=== PATIENT | male | born 1965 | race Caucasian/White ===

== ENCOUNTER 2017-02-22 04:35 | Inpatient (IN) | payer MEDICARE, OTHER ==
[2017-02-22] VITALS (10 sets, daily range): BP systolic 119–136; BP diastolic 50–86; PULSE 98–102; RESP 19–20; TEMP 99.4; Ht 162.6 cm; Wt 168.1 kg
[~2017-02-22] VITALS: Ht 162.6 cm; Wt 168.1 kg
[2017-02-22] MEDS ORDERED: ONDANSETRON 4 MG INJ IV ONE (05:08)
[2017-02-22] MEDS ORDERED: ACETAMINOPHEN 500 MG TAB PO STA (05:18)
[2017-02-22 05:23] LABS: ABNORMAL IP MESSAGE 1; BASOPHILS % 0.3 % (0.0-2.0); EOSINOPHILS # 0.2 10^3/ul (0.0-0.5); EOSINOPHILS % 1.3 % (0.0-7.0); HEMATOCRIT 39.5 % (42.0-52.0); LYMPHOCYTES # 0.5 10^3/ul (0.8-2.9); MEAN CORPUSCULAR HEMOGLOBIN 31.3 pg (29.0-33.0); MEAN CORPUSCULAR HGB CONC 32.9 g/dl (32.0-37.0); MEAN PLATELET VOLUME 8.8 fl (7.4-10.4); MONOCYTE # 0.1 10^3/ul (0.3-0.9); MONOCYTES % 0.6 % (0.0-11.0); NEUTROPHILS % 93.4 % (39.0-77.0); PLATELET COUNT 243 10^3/UL (140-415); POSITIVE DIFF @See below; RED BLOOD COUNT 4.16 10^6/ul (4.70-6.10); RED CELL DISTRIBUTION WIDTH 13.2 % (11.5-14.5); WHITE BLOOD COUNT 12.3 10^3/ul (4.8-10.8)
--- NOTE | 2017-02-22 05:31 | RADRPT ---
PROCEDURE: XR Chest. CLINICAL INDICATION: Sepsis TECHNIQUE: Portable single view of the chest COMPARISON: None. FINDINGS: Mild cardiomegaly. Dialysis catheter is seen with tip in the superior vena cava. Reduced lung volu mes. Pulmonary vascular congestion without definite interstitial or alveolar edema. No focal infil trate or pleural effusion. IMPRESSION: Reduced lung volumes. Cardiomegaly and mild pulmonary vascular congestion. RPTAT: HLBE Radha Proctor Physician Date Time Electronically viewed and signed by Radha Proctor Physician on 02/22/2017 05:31 LE/
[2017-02-22] MEDS ORDERED: INSU100I12 SQ (05:34)
[2017-02-22] MEDS ORDERED: PRO20 PO (05:34)
[2017-02-22] MEDS ORDERED: CARV6.2579 PO (05:34)
[2017-02-22] MEDS ORDERED: LANT3I SC (05:34)
[2017-02-22] MEDS ORDERED: ASPI-664 PO (05:34)
[2017-02-22] MEDS ORDERED: SIMV20TA PO (05:34)
[2017-02-22] MEDS ORDERED: CEFEPIME 2GM/50 ML (PMX) 50 ML IVPB STA (05:52)
--- NOTE | 2017-02-22 05:55 | ERA ---
ER Documentation Chief Complaint Date/Time DATE: 02/22/17 TIME: 05:53 Chief Complaint FEVER, VOMITTING, SHAKEY SINCE THIS MORNING HPI 51-year-old male comes in with fever vomiting shakiness and cough since this morning. Cough is mildly productive and causes vomiting. No chills. No other current complaints. Patient with history of diabetes and hypertension. ROS All systems reviewed and are negative except as per history of present illness. Medications Home Meds Reported Medications Carvedilol* (Carvedilol*) 6.25 Mg Tablet, 6.25 MG PO BID, #60 TAB 02/22/17 Simvastatin* (Zocor*) 20 Mg Tablet, 20 MG PO QHS, #30 TAB 02/22/17 Nifedipine* (Procardia*) 20 Mg Cap, 20 MG PO Q6, CAP 02/22/17 Aspirin* (Aspirin* EC) 81 Mg Tablet.dr, 81 MG PO DAILY, TAB 02/22/17 Insulin Lispro (Humalog Kwikpen U-100) 100 Unit/1 Ml Insuln.pen, 10 UNIT SQ AC DINNER 02/22/17 Insulin Glargine* (Lantus*) 100 Unit/Ml Soln, 40 UNIT SC BEFORE BREAKFAST, #1 VIAL 02/22/17 Allergies Allergies: Coded Allergies: No Known Allergy (Unverified , 02/22/17) Physical Exam Vitals Vital Signs Date Time Temp Pulse Resp B/P Pulse Ox O2 Delivery O2 Flow Rate FiO2 02/22/17 04:40 101.3 122 18 154/94 97 Physical Exam Const: [] Head: Atraumatic Eyes: Normal Conjunctiva ENT: Normal External Ears, Nose and Mouth. Neck: Full range of motion..~ No meningismus. Resp: Clear to auscultation bilaterally Cardio: Regular rate and rhythm, no murmurs Abd: Soft, non tender, non distended. Normal bowel sounds Skin: No petechiae or rashes Back: No midline or flank tenderness Ext: No cyanosis, or edema Neur: Awake and alert Psych: Normal Mood and Affect Result Diagram: 02/22/17 0440 Results 24 hrs Laboratory Tests Test 02/22/17 04:40 White Blood Count 12.310^3/ul Red Blood Count 4.1610^6/ul Hemoglobin 13.0g/dl Hematocrit 39.5% Mean Corpuscular Volume 95.0fl Mean Corpuscular Hemoglobin 31.3pg Mean Corpuscular Hemoglobin Concent 32.9g/dl Red Cell Distribution Width 13.2% Platelet Count 69983^3/UL Mean Platelet Volume 8.8fl Neutrophils % 93.4% Lymphocytes % 4.0% Monocytes % 0.6% Eosinophils % 1.3% Basophils % 0.3% Nucleated Red Blood Cells % 0.0/100WBC Neutrophils # (Manual) 1210^3/ul Lymphocytes # 0.510^3/ul Monocytes # 0.110^3/ul Eosinophils # 0.210^3/ul Basophils # 0.010^3/ul Nucleated Red Blood Cells # 0.010^3/ul Current Medications Medications (Trade) Dose Ordered Sig/Angelo Route PRN Reason Start Time Stop Time Status Last Admin Dose Admin Ondansetron HCl (Zofran Inj) 4 mg ONCE ONCE IV 02/22/17 05:08 02/22/17 05:09 DC Acetaminophen (Tylenol Tab) 1,000 mg ONCE STAT PO 02/22/17 05:18 02/22/17 05:19 DC Procedures/MDM EKG: Rate/Rhythm: [Normal Sinus Rhythm] QRS, ST, T-waves: [No changes consistent w/ acute ischemia] Impression: [No evidence of ischemia or arrhythmia] Chest X-ray 1V Interpreted by me: Soft Tissue: No acute abnormalities Bones: No acute abnormalities Mediastinum/Cardiac Silhouette/Lungs: [No acute abnormalities] Patient's infectious symptoms have not stabilized and the patient is at risk of rapid decompensation. The patient will be admitted for careful hydration, antibiotic therapy, and infectious source control. Severe Sepsis Assessment: Infectious Source: Unknown End organ damage indicated by: [Lactate > 2.0 mmol/L Hypotension( SBP < 90 or >40 mmHG drop or MAP < 65) Acute Resp Failure (sat < 92% w/o oxygen) Severe Sepsis Managment: Blood Cultures X 2 before broad spectrum antibiotics initiated within 3 hours of recognition. 30 ml/kg NS bolus held secondary patient's pulmonary vascular congestion and fluid overloaded status Initial Lactate: Pending Repeat Lactate pending Critical Care: Time: 45 minutes Treatments/Evaluations: Emergent fluid management, while maintaining close respiratory support. Immediate broad spectrum antibiotic therapy. Simultaneous assessment for possible sources in order to direct therapy. Consideration for invasive and chemical support to prevent respiratory or cardiac collapse. Accepting Care Team: Current data and ongoing care discussed. Time: 5:45 AM Primary Provider: Hospitalist Consulting: [XOXOXO] Outstanding Data: none Departure Diagnosis: Primary Impression: Fever Qualified Code: R50.9 - Fever, unspecified fever cause Additional Impression: Sepsis Qualified Code: A41.9 - Sepsis, due to unspecified organism Condition: Serious [place] Feb 22, 2017 05:55
[2017-02-22 06:00] LABS: INR 0.97; PROTIME 12.9 Sec (12.2-14.2)
[2017-02-22] MEDS ORDERED: VANCOMYCIN 1 GM (PMX) 250 ML IVPB ONE (06:00)
[2017-02-22 06:01] LABS: PARTIAL THROMBOPLASTIN TIME 43.4 Sec (25.0-35.0)
[2017-02-22 06:06] LABS: POTASSIUM 5.1 mmol/L (3.5-5.1)
[2017-02-22 06:07] LABS: ALBUMIN 4.5 g/dl (3.3-4.9); ALBUMIN/GLOBULIN RATIO 1.12; BILIRUBIN,INDIRECT 0.1 mg/dl (0-1.1); BILIRUBIN,TOTAL 0.1 mg/dl (0.2-1.3); CALCIUM 8.8 mg/dl (8.4-10.2); CREATININE 9.64 mg/dl (0.61-1.24); TOTAL PROTEIN 8.5 g/dl (6.1-8.1)
[2017-02-22 06:18] LABS: TROPONIN-I 0.022 ng/ml (0.00-0.12)
[2017-02-22] MEDS ORDERED: ACETAMINOPHEN 325 MG TAB PO PRN (09:30)
[2017-02-22] MEDS ORDERED: ONDANSETRON 4 MG INJ IV PRN (09:30)
[2017-02-22] MEDS ORDERED: VANCOMYCIN IV PER PHARMACY XX SCH (12:30)
--- NOTE | 2017-02-22 12:32 | HP ---
Date/Time of Note Date/Time of Note DATE: 02/22/17 TIME: 12:23 Assessment/Plan VTE Prophylaxis VTE Prophylaxis Intervention: heparin Lines/Catheters Urinary Cath still in place: No Assessment/Plan Chief Complaint/Hosp Course 51 yo male wiht h/o ESRD on HD, DMII, morbid obesity, hypertension who presents with fevers and rigors while receiving HD Sepsis: - Suspect patient suffered transient bacteremia during HD session - Continue broad spectrum abx (Vanco, cefepime) for now, and await blood culture results ESRD: - HD per renal DMII: - Continue basal/bolus insulin Hypertension: - Will hold antihypertensives while septic PPx: HSQ Dispo to self care following resolution of illness Problems: HPI/ROS Admit Date/Time Admit Date/Time Hx of Present Illness 51 yo male with h/o morbid obesity, DMII, ESRD on HD, HTN who presents with fevers and rigors at HD today Patient in [facility] until HD session. During session began to feel chills, rigors. Temp was elevated. HD stopped after a few minutes and patient brought to ED. Febrile here. Given IV vanco/cefepime. Now says he feels totally back to normal Denies any symptoms of infection prior to this or currently. No cough, no abd pain, diarrhea etc. Has permacath in chest, no symptoms there. PMH/Family/Social Past Medical History Medical History: diabetes, renal disease Past Surgical History AV fistula Past Surgical Hx: other Social History Alcohol Use: none Smoking Status: Never smoker Drug Use: none Exam/Review of Systems Vital Signs Vitals Vital Signs Date Time Temp Pulse Resp B/P Pulse Ox O2 Delivery O2 Flow Rate FiO2 02/22/17 11:50 93 18 124/82 97 Room Air 02/22/17 04:40 101.3 Exam Exam Morbidly obese Resting comfortably in NAD, nontoxic appearing RRR, normal heart sound Permacath site without signs of skin infection Lungs clear Abdomen obese No edema Labs Result Diagram: 02/22/1743902/22/17439 SHAYNA MADDEN MD Feb 22, 2017 12:31
[2017-02-22] MEDS ORDERED: DEXTROSE 50% 50 ML SYRINGE IV PRN ×2 (14:00)
[2017-02-22] MEDS ORDERED: GLUCAGON 1 MG INJ IM PRN (14:00)
[2017-02-22] MEDS ORDERED: GLUCOSE GEL 15 GRAM TUBE BUCCAL PRN (14:00)
[2017-02-22] MEDS ORDERED: GLUCOSE GEL 15 GRAM TUBE PO PRN ×2 (14:00)
[2017-02-22] MEDS: HEPARIN 5,000 UNIT/0.5 ML VIAL SC SCH ×2 (14:56→21:56)
[2017-02-22] MEDS ORDERED: VANCOMYCIN 2 GM in SOD CHLORIDE 0.9% 500 ML IVPB ONE (18:30)
--- NOTE | 2017-02-22 20:44 | CONS ---
DATE OF ADMISSION: 02/22/2017 DATE OF CONSULTATION: 02/22/2017 REASON FOR CONSULTATION: End-stage renal disease. REFERRING PHYSICIAN: Alex Brenner MD HISTORY OF PRESENT ILLNESS: This is a 51-year-old male with a past medical history of end-stage renal disease, on dialysis Monday, Monday, Monday; history of diabetes, hypertension, who presents to [facility] from his dialysis unit. Patient said that once dialysis was initiated, he started having fevers and chills, and was discontinued. As a result, he came to the emergency room. Upon arrival, the patient had a laboratory data drawn, which showed a white count of 12,000. Chest x-ray was performed, which showed reduced lung volumes, cardiomegaly and mild pulmonary vascular congestion. Patient was given IV antibiotics in the emergency room. There was no reports of hemoptysis, hematemesis, hematochezia. PAST MEDICAL HISTORY: As stated above. History of end-stage renal disease. History of diabetes and hypertension. PAST SURGICAL HISTORY: Status post PermCath placement, status post AV fistula placement. ALLERGIES: NO KNOWN DRUG ALLERGIES. FAMILY HISTORY: Noncontributory. SOCIAL HISTORY: Does not drink, smoke, or do drugs. MEDICATION: Reviewed. REVIEW OF SYSTEMS: Fourteen-point review of systems conducted. Pertinent positives in HPI, otherwise negative. PHYSICAL EXAMINATION: VITAL SIGNS: Blood pressure is 124/82, respirations 18, pulse 93, temperature of 100.1. HEENT: Head is normocephalic. NECK: Supple. HEART: Regular rate. LUNGS: Show diminished breath sounds at base. ABDOMEN: Soft, nontender to palpation. No voluntary guarding. EXTREMITIES: Negative for clubbing, cyanosis, no edema. DERMATOLOGIC: No rashes. MUSCULOSKELETAL: No joint effusion. NEUROLOGIC: No change in exam. Patient medications reviewed. LABORATORY: Shows a white count 12.3, hemoglobin 13.0, hematocrit 39.5, platelet count 243. Sodium 135, potassium 5.4, chloride 91, BUN 71, creatinine 9.61, lactic acid 3.3. IMPRESSION AND PLAN: This is a 51-year-old male, presents with followin. End-stage renal disease. Patient is on dialysis Monday, Monday, Monday. Plan for dialysis today for 3 hours, 3K bath, calcium 2.5. 2. Sepsis, rule out line infection. Patient will have blood cultures drawn from his PermCath as well as peripheral cultures. Will continue IV antibiotics. Will monitor closely. If PermCath is infected, consider removing or line exchange. 3. Anemia. Monitor H and H levels. Will give Epogen with hemodialysis. 4. Mineral bone disorder. Monitor calcium and phosphorus levels. 5. Volume overload. Will continue ultrafiltration with hemodialysis. 6. Diabetes. Continue Accu-Cheks and sliding scale. 7. Hypertension. Continue current blood pressure regimen. Thank you, Dr. Miranda, for this interesting consult. It will be a pleasure to follow patient with you throughout the hospital course. Dictated By: Jacobo Gaines DO /valerie/erika /Document#: [id number]
[2017-02-23] MEDS: ACCU-CHEK XX SCH (02:00)
[2017-02-23 02:09] VITALS: BP 104/59; RESP 19
[2017-02-23] MEDS: CEFEPIME 1GM/50 ML (PMX) 50 ML IVPB SCH (06:22)
[2017-02-23 08:15] LABS: BASOPHIL # 0.1 10^3/ul (0.0-0.1); BASOPHILS % 0.4 % (0.0-2.0); EOSINOPHILS # 0.1 10^3/ul (0.0-0.5); EOSINOPHILS % 0.4 % (0.0-7.0); HEMATOCRIT 36.4 % (42.0-52.0); HEMOGLOBIN 11.7 g/dl (14.0-18.0); LYMPHOCYTES # 1.5 10^3/ul (0.8-2.9); LYMPHOCYTES % 12.4 % (15.0-51.0); MEAN CORPUSCULAR HEMOGLOBIN 31.7 pg (29.0-33.0); MEAN CORPUSCULAR HGB CONC 32.1 g/dl (32.0-37.0); MEAN CORPUSCULAR VOLUME 98.6 fl (82.0-101.0); MEAN PLATELET VOLUME 8.9 fl (7.4-10.4); MONOCYTE # 1.4 10^3/ul (0.3-0.9); MONOCYTES % 11.2 % (0.0-11.0); NEUTROPHILS % 75.2 % (39.0-77.0); PLATELET COUNT 134 10^3/UL (140-415); RED BLOOD COUNT 3.69 10^6/ul (4.70-6.10); RED CELL DISTRIBUTION WIDTH 13.6 % (11.5-14.5); WHITE BLOOD COUNT 12.3 10^3/ul (4.8-10.8)
[2017-02-23] MEDS: ASPIRIN (EC) 81 MG TAB PO SCH (08:26)
[2017-02-23] MEDS: HEPARIN 5,000 UNIT/0.5 ML VIAL SC SCH (08:27)
[2017-02-23] MEDS: INSULIN ASPART [NOVOLOG] 3 ML PEN SC SCH ×4 (08:27→17:33)
[2017-02-23] MEDS: INSULIN GLARGINE [LANtus] 3 ML PEN SC SCH (08:30)
[2017-02-23 08:52] VITALS: BP 128/57; RESP 18
[2017-02-23 09:11] LABS: ALBUMIN 3.6 g/dl (3.3-4.9); ALBUMIN/GLOBULIN RATIO 1.05; CALCIUM 8.2 mg/dl (8.4-10.2); CREATININE 9.34 mg/dl (0.61-1.24)
--- NOTE | 2017-02-23 10:26 | PN ---
DATE: 02/23/2017 SUBJECTIVE DATA: The patient is stable. No acute events overnight. The patient had hemodialysis yesterday, tolerated it well with 4 liters removed. OBJECTIVE DATA: VITAL SIGNS: Blood pressure 120/57, respirations 18, pulse 85, temperature 98.1. HEENT: Head is normocephalic. NECK: Supple. HEART: Regular rate. LUNGS: Diminished breath sounds at the base. ABDOMEN: Soft, nontender to palpation. No guarding. EXTREMITIES: Negative for clubbing, cyanosis. No edema. DERMATOLOGIC: No rashes. MUSCULOSKELETAL: No joint effusion. NEUROLOGIC: Unchanged exam. MEDICATIONS: Reviewed. LABORATORY AND DIAGNOSTIC DATA: White count 12.2, hemoglobin 9.7, hematocrit of 36.4, platelet count 134,000. The patient's repeat BNP is pending. The patient's blood cultures 1 out of 2 is growing gram-negative rods. ASSESSMENT AND PLAN: 1. End-stage renal disease. The patient on dialysis Monday, Monday, Monday. Had hemodialysis yesterday, tolerated well. Plan for dialysis tomorrow. 2. Sepsis with gram-negative bacteria etiology is concerning for line infection. Will wait for final cultures and speciation. Consider ID consult. Continue IV antibiotics. Will also draw cultures from PermCath, if repeat cultures remain positive, the patient's PermCath will have to be removed. 3. Anemia. Monitor hemoglobin and hematocrit levels. Will give Epogen with hemodialysis. 4. Mineral bone disorder. Monitor calcium and phosphorus levels. 5. Volume overload. Continue ultrafiltration dialysis. 6. Diabetes. Continue Accu-Cheks and sliding scale. 7. Hypertension. Continue current blood pressure regimen. Dictated By: Jacobo Gaines DO /valerie/margot /Document#: [id number]
--- NOTE | 2017-02-23 11:37 | CONS ---
Date/Time of Note Date/Time of Note DATE: 02/23/17 TIME: 11:35 Consultation Date/Type/Reason Admit Date/Time Date of Consultation: Feb 23, 2017 Type of Consultation: ID Reason for Consultation Antibiotic management Past Medical History Medical History: diabetes, renal disease Past Surgical History Past Surgical Hx: other Social History Alcohol Use: none Smoking Status: Never smoker Drug Use: none Exam/Review of Systems Vital Signs Vitals Vital Signs Date Time Temp Pulse Resp B/P Pulse Ox O2 Delivery O2 Flow Rate FiO2 02/23/17 08:52 98.1 85 18 128/57 94 02/22/17 19:47 Room Air Intake and Output 02/22/17 02/22/17 02/23/17 15:00 23:00 07:00 Intake Total 500 ml 240 ml 1100 ml Output Total 4500 ml Balance -4000 ml 240 ml 1100 ml Results Result Diagram: 02/23/17 0747 02/23/17 0747 Results 24 hrs Laboratory Tests Test 02/22/17 13:40 02/23/17 07:47 02/23/17 08:02 Lactic Acid Level 1.5 White Blood Count 12.3 H Red Blood Count 3.69 L Hemoglobin 11.7 L Hematocrit 36.4 L Mean Corpuscular Volume 98.6 Mean Corpuscular Hemoglobin 31.7 Mean Corpuscular Hemoglobin Concent 32.1 Red Cell Distribution Width 13.6 Platelet Count 134 #L Mean Platelet Volume 8.9 Neutrophils % 75.2 Lymphocytes % 12.4 L Monocytes % 11.2 H Eosinophils % 0.4 Basophils % 0.4 Nucleated Red Blood Cells % 0.0 Neutrophils # (Manual) 9 H Lymphocytes # 1.5 Monocytes # 1.4 H Eosinophils # 0.1 Basophils # 0.1 Nucleated Red Blood Cells # 0.0 Sodium Level 134 L Potassium Level 5.0 Chloride Level 95 L Carbon Dioxide Level 26 Anion Gap 18 H Blood Urea Nitrogen 63 H Creatinine 9.34 H Glucose Level 128 # Calcium Level 8.2 L Total Bilirubin 0.0 L Direct Bilirubin 0.00 Indirect Bilirubin 0.0 Aspartate Amino Transf (AST/SGOT) 19 Alanine Aminotransferase (ALT/SGPT) 24 Alkaline Phosphatase 56 Total Protein 7.0 # Albumin 3.6 Globulin 3.40 H Albumin/Globulin Ratio 1.05 Bedside Glucose 117 Medications Medications Current Medications Aspirin 81 mg 81 mg DAILY PO Last administered on 02/23/17 08:26; Admin Dose 81 MG; Start 02/23/17 at 09:00 Cefepime HCl (Maxipime 1gm/50 ml (Pmx)) 50 ml @ 100 mls/hr Q24H IVPB Last administered on 02/23/17 06:22; Admin Dose 100 MLS/HR; Start 02/23/17 at 06:00 Heparin Sodium (Porcine) (Heparin (5000 Units/0.5 ml)) 5,000 unit BID SC Last administered on 02/23/17 08:27; Admin Dose 5,000 UNIT; Start 02/22/17 at 13:00 Diagnostic Test (Pha) (Accu-Chek) 1 ea 02 XX ; Start 02/23/17 at 02:00 Insulin Glargine (Lantus) 34 unit DAILY@08 SC Last administered on 02/23/17 08 :30; Admin Dose 34 UNIT; Start 02/23/17 at 08:00 Miscellaneous Information 1 ea NOTE XX ; Start 02/22/17 at 14:00 Glucose (Glutose) 15 gm Q15M PRN PO DECREASED GLUCOSE; Start 02/22/17 at 14:00 Glucose (Glutose) 22.5 gm Q15M PRN PO DECREASED GLUCOSE; Start 02/22/17 at 14: 00 Dextrose (D50w Syringe) 25 ml Q15M PRN IV DECREASED GLUCOSE; Start 02/22/17 at 14:00 Dextrose (D50w Syringe) 50 ml Q15M PRN IV DECREASED GLUCOSE; Start 02/22/17 at 14:00 Glucagon (Glucagen) 1 mg Q15M PRN IM DECREASED GLUCOSE; Start 02/22/17 at 14:00 Glucose (Glutose) 15 gm Q15M PRN BUCCAL DECREASED GLUCOSE; Start 02/22/17 at 14 :00 Miscellaneous Information (*Rx Drug Level Order Reminder*) VANCOMYCIN RANDOM ON 02/01... ONCE ONCE XX ; Start 02/24/17 at 05:00; Stop 02/24/17 at 05:01 TIFFANIE CAMACHO MD Feb 23, 2017 11:37
[2017-02-23] MEDS: Insulin NOVOLOG SS MILD Algorithm (SS with meals and bedtime) SC SCH ×3 (12:09→20:34)
--- NOTE | 2017-02-23 12:18 | CONS ---
DATE OF ADMISSION: 02/22/2017 DATE OF CONSULTATION: 02/23/2017 REASON FOR CONSULTATION: Antibiotic management. HISTORY OF PRESENT ILLNESS: Kevin Brand is a 51-year-old male, with end-stage renal disease, on hemodialysis, who comes in now with sepsis and is being seen for antibiotic management. Past problems include: 1. History of morbid obesity. 2. Adult-onset diabetes mellitus. 3. End-stage renal disease, on hemodialysis. 4. Hypertension. The patient presents with fever and rigors when he was at hemodialysis on the . During the session, he began to feel chills and rigors, he developed an elevated temperature, dialysis was stopped and he was brought to the emergency room. He was given vancomycin and cefepime. He denies any symptoms of infection prior to this or in the emergency room. He has a PermCath in the chest with no tenderness around the PermCath. In the emergency room, his white count was 12.3, H and H of 13 and 39.5, platelet count 243,000. BUN and creatinine were 71/9.64, glucose was 180. PAST MEDICAL HISTORY: Operations as outlined. He had an AV fistula. Past surgical history is noncontributory except for a dialysis catheter. FAMILY HISTORY: Noncontributory. SOCIAL HISTORY: He does not smoke, drink, or abuse drugs. ALLERGIES: NONE TO PENICILLIN, SULFA, OR FOODS. MEDICATION: Per chart. REVIEW OF SYSTEMS: As per HPI. PHYSICAL EXAMINATION: GENERAL: Patient is a morbidly obese male, who is awake, responsive, in no acute distress. VITAL SIGNS: Stable. T-max is 101.3. SKIN: Without generalized rash. HEENT: Within normal limits. NECK: Supple. Lymph nodes nonpalpable. CHEST: Decreased breath sounds at the bases. HEART: Without murmur or gallop. ABDOMEN: Soft, nontender, without organosplenomegaly or masses. EXTREMITIES: Without cyanosis, clubbing, or edema. RECTAL AND GENITAL: Exams deferred. NEUROLOGIC: No focal neurological abnormalities. IMPRESSION AND PLAN: The patient presents now with what appears to be sepsis. Actually, his blood cultures from are now growing 1/2 gram-negative rods. His white count is 12.3. I do not believe he is putting out any urine. His chest x-ray shows no evidence of infiltrate but does show mild pulmonary vascular congestion and a dialysis catheter with the tip in the superior vena cava. Patient is currently on vancomycin and cefepime. We will await the results of his cultures. I will dictate my findings to the hospitalist and also to Dr. Gaines. Cultures from the PermCath have also been redrawn by Dr. Gaines and if the cultures remain positive, the PermCath will be removed. Dictated By: Lyle Allison MD JD/valerie/manoj /Document#: [id number]
--- NOTE | 2017-02-23 12:25 | PN ---
Date/Time of Note Date/Time of Note DATE: 02/23/17 TIME: 12:21 Assessment/Plan VTE Prophylaxis VTE Prophylaxis Intervention: SCD's Lines/Catheters IV Catheter Type (from Nrs): PERMA CATH Urinary Cath still in place: No Assessment/Plan Chief Complaint/Hosp Course 51 yo male wiht h/o ESRD on HD, DMII, morbid obesity, hypertension who presents with fevers and rigors while receiving HD, found to have GNR bactermia Sepsis from GNR bacteremia: - Continue broad spectrum abx (Vanco, cefepime) for now, and await blood culture results - ID consult - Permacath culture - Consider remove HD line ESRD: - HD per renal DMII: - Continue basal/bolus insulin Hypertension: - Will hold antihypertensives while septic PPx: HSQ Dispo to self care following resolution of illness Problems: Subjective 24 Hr Interval Summary Free Text/Dictation Patient rigored during initial HD session again yesterday so was held until yesterday PM which went successfully Today feels well, asking if can be discharged. Informed him he has bactermiea and very important he stay here. He is in agreement. He is worried his AV fisulta is infected Exam/Review of Systems Vital Signs Vitals Vital Signs Date Time Temp Pulse Resp B/P Pulse Ox O2 Delivery O2 Flow Rate FiO2 02/23/17 08:52 98.1 85 18 128/57 94 02/22/17 19:47 Room Air Intake and Output 02/22/17 02/22/17 02/23/17 15:00 23:00 07:00 Intake Total 500 ml 240 ml 1100 ml Output Total 4500 ml Balance -4000 ml 240 ml 1100 ml Exam Morbidly obese Nontoxic Comfortable Permacath in R chest looks clean, no surrounding infection AV fistula of LUE Results Result Diagram: 02/23/17 0747 02/23/17 0747 Results 24 hrs Laboratory Tests Test 02/22/17 13:40 02/23/17 07:47 02/23/17 08:02 02/23/17 11:37 Lactic Acid Level 1.5 White Blood Count 12.3 H Red Blood Count 3.69 L Hemoglobin 11.7 L Hematocrit 36.4 L Mean Corpuscular Volume 98.6 Mean Corpuscular Hemoglobin 31.7 Mean Corpuscular Hemoglobin Concent 32.1 Red Cell Distribution Width 13.6 Platelet Count 134 #L Mean Platelet Volume 8.9 Neutrophils % 75.2 Lymphocytes % 12.4 L Monocytes % 11.2 H Eosinophils % 0.4 Basophils % 0.4 Nucleated Red Blood Cells % 0.0 Neutrophils # (Manual) 9 H Lymphocytes # 1.5 Monocytes # 1.4 H Eosinophils # 0.1 Basophils # 0.1 Nucleated Red Blood Cells # 0.0 Sodium Level 134 L Potassium Level 5.0 Chloride Level 95 L Carbon Dioxide Level 26 Anion Gap 18 H Blood Urea Nitrogen 63 H Creatinine 9.34 H Glucose Level 128 # Calcium Level 8.2 L Total Bilirubin 0.0 L Direct Bilirubin 0.00 Indirect Bilirubin 0.0 Aspartate Amino Transf (AST/SGOT) 19 Alanine Aminotransferase (ALT/SGPT) 24 Alkaline Phosphatase 56 Total Protein 7.0 # Albumin 3.6 Globulin 3.40 H Albumin/Globulin Ratio 1.05 Bedside Glucose 117 105 Medications Medications Current Medications Aspirin 81 mg 81 mg DAILY PO Last administered on 02/23/17 08:26; Admin Dose 81 MG; Start 02/23/17 at 09:00 Cefepime HCl (Maxipime 1gm/50 ml (Pmx)) 50 ml @ 100 mls/hr Q24H IVPB Last administered on 02/23/17 06:22; Admin Dose 100 MLS/HR; Start 02/23/17 at 06:00 Heparin Sodium (Porcine) (Heparin (5000 Units/0.5 ml)) 5,000 unit BID SC Last administered on 02/23/17 08:27; Admin Dose 5,000 UNIT; Start 02/22/17 at 13:00 Diagnostic Test (Pha) (Accu-Chek) 1 ea 02 XX ; Start 02/23/17 at 02:00 Insulin Glargine (Lantus) 34 unit DAILY@08 SC Last administered on 02/23/17 08 :30; Admin Dose 34 UNIT; Start 02/23/17 at 08:00 Miscellaneous Information 1 ea NOTE XX ; Start 02/22/17 at 14:00 Glucose (Glutose) 15 gm Q15M PRN PO DECREASED GLUCOSE; Start 02/22/17 at 14:00 Glucose (Glutose) 22.5 gm Q15M PRN PO DECREASED GLUCOSE; Start 02/22/17 at 14: 00 Dextrose (D50w Syringe) 25 ml Q15M PRN IV DECREASED GLUCOSE; Start 02/22/17 at 14:00 Dextrose (D50w Syringe) 50 ml Q15M PRN IV DECREASED GLUCOSE; Start 02/22/17 at 14:00 Glucagon (Glucagen) 1 mg Q15M PRN IM DECREASED GLUCOSE; Start 02/22/17 at 14:00 Glucose (Glutose) 15 gm Q15M PRN BUCCAL DECREASED GLUCOSE; Start 02/22/17 at 14 :00 Miscellaneous Information (*Rx Drug Level Order Reminder*) VANCOMYCIN RANDOM ON 02/01... ONCE ONCE XX ; Start 02/24/17 at 05:00; Stop 02/24/17 at 05:01 SHAYNA MADDEN MD Feb 23, 2017 12:25
[2017-02-23 15:40] VITALS: BP 127/59; RESP 20
[2017-02-23] MEDS ORDERED: INSULIN ASPART [NOVOLOG] 3 ML PEN SC SCH (17:35)
[2017-02-23 19:40] VITALS: BP 145/66; RESP 16
[2017-02-24] VITALS (10 sets, daily range): BP systolic 109–144; BP diastolic 56–85; PULSE 84–89; RESP 18–20
[2017-02-24] MEDS: ACCU-CHEK XX SCH (02:00)
[2017-02-24] MEDS: CEFEPIME 1GM/50 ML (PMX) 50 ML IVPB SCH (05:58)
[2017-02-24 06:09] LABS: ABNORMAL IP MESSAGE 1; BASOPHIL # 0.1 10^3/ul (0.0-0.1); BASOPHILS % 0.7 % (0.0-2.0); EOSINOPHILS # 0.2 10^3/ul (0.0-0.5); EOSINOPHILS % 2.7 % (0.0-7.0); HEMATOCRIT 36.1 % (42.0-52.0); HEMOGLOBIN 11.9 g/dl (14.0-18.0); LYMPHOCYTES # 1.9 10^3/ul (0.8-2.9); MEAN CORPUSCULAR HEMOGLOBIN 31.4 pg (29.0-33.0); MEAN CORPUSCULAR VOLUME 95.3 fl (82.0-101.0); MEAN PLATELET VOLUME 9.2 fl (7.4-10.4); MONOCYTE # 1.6 10^3/ul (0.3-0.9); MONOCYTES % 17.3 % (0.0-11.0); NUCLEATED RED BLOOD CELLS% 0.2 /100WBC (0.0-0.0); PLATELET COUNT 147 10^3/UL (140-415); POSITIVE DIFF @See below; RED BLOOD COUNT 3.79 10^6/ul (4.70-6.10); RED CELL DISTRIBUTION WIDTH 13.2 % (11.5-14.5)
[2017-02-24 06:55] LABS: ALBUMIN 3.4 g/dl (3.3-4.9); CREATININE 10.7 mg/dl (0.61-1.24); POTASSIUM 5.4 mmol/L (3.5-5.1)
[2017-02-24 06:56] LABS: ALBUMIN/GLOBULIN RATIO 0.94
[2017-02-24] MEDS: Insulin NOVOLOG SS MILD Algorithm (SS with meals and bedtime) SC SCH ×4 (07:30→20:18)
[2017-02-24] MEDS: INSULIN ASPART [NOVOLOG] 3 ML PEN SC SCH ×3 (07:35→18:16)
[2017-02-24] MEDS: INSULIN GLARGINE [LANtus] 3 ML PEN SC SCH (08:12)
[2017-02-24] MEDS: ASPIRIN (EC) 81 MG TAB PO SCH (08:12)
--- NOTE | 2017-02-24 11:12 | PN ---
DATE: 02/24/2017 SUBJECTIVE DATA: The patient is stable. No events overnight. No fevers, chills, nausea, vomiting. The patient is scheduled for dialysis today. OBJECTIVE DATA: VITAL SIGNS: Blood pressure 117/56, respirations 18, pulse 80, temperature 97.5. HEENT: Head is normocephalic. NECK: Supple. HEART: Regular rate. LUNGS: Show diminished breath sounds at the base. ABDOMEN: Soft, nontender to palpation. No rebound or guarding. EXTREMITIES: Negative for clubbing, cyanosis. No edema. DERMATOLOGIC: No rashes. MUSCULOSKELETAL: No joint effusion. NEUROLOGIC: Unchanged exam. MEDICATIONS: Reviewed. LABORATORY AND DIAGNOSTIC DATA: Shows sodium 136, potassium 5.4, BUN 78, creatinine 10.70. White count is 9.0, hemoglobin 11.9, crit 36.1, platelet count is 147. ASSESSMENT AND PLAN: 1. End-stage renal disease. The patient on dialysis Monday, Monday, Monday. The patient is scheduled for dialysis today. We will plan for dialysis for 3 hours, 3K bath, calcium 2.5. 2. Sepsis, gram-negative bacteremia. Etiology is concerning for line infection. Patient's blood cultures 1/2 show gram- negative rods. Repeat blood cultures from PermCath are pending today. If cultures remain positive, we will likely need to discontinue PermCath. Additionally, if patient has symptoms of systemic inflammatory response syndrome and sepsis with dialysis, will need to discontinue PermCath. If patient is clinically improving and repeat cultures are negative, we may be able to spare PermCath. We will discuss again with Infectious Disease today. 3. Anemia. Monitor H and H levels. Give Epogen as needed. 4. Mineral bone disorder. Continue to monitor calcium and phosphorus levels. 5. Volume overload. Continue ultrafiltration dialysis. 6. Diabetes. Continue Accu-Cheks, insulin sliding scale. 7. Hypertension. Continue current blood pressure regimen. Dictated By: Jacobo Gaines DO /valerie/manoj /Document#: [id number]
--- NOTE | 2017-02-24 17:43 | PN ---
Date/Time of Note Date/Time of Note DATE: 02/24/17 TIME: 17:42 Assessment/Plan VTE Prophylaxis VTE Prophylaxis Intervention: heparin Lines/Catheters IV C[facility]ter Type [facility]from [facility] perma cath Urinary Cath still in place: No Assessment/Plan Chief Complaint/Hosp Course 51 yo male wiht h/o ESRD on HD, DMII, morbid obesity, hypertension who presents with fevers and rigors while receiving HD, found to have GNR bactermia Sepsis from GNR bacteremia: - Continue broad spectrum abx (Vanco, cefepime) for now, and await blood culture results - ID consulted - Permacath culture pending. - Will likely remove HD line ESRD: - HD per renal DMII: - Continue basal/bolus insulin Hypertension: - Will hold antihypertensives while septic PPx: HSQ Dispo to self care following resolution of illness Problems: Subjective 24 Hr Interval Summary Free Text/Dictation Feels well, no complaints HD planned for today No more fevers or rigors Exam/Review of Systems Vital Signs Vitals Vital Signs Date Time Temp Pulse Resp B/P Pulse Ox O2 Delivery O2 Flow Rate FiO2 02/24/17 17:00 85 20 02/24/17 14:26 97.5 109/75 93 02/22/17 19:47 Room Air Intake and Output 02/23/17 02/23/17 02/24/17 15:00 23:00 07:00 Intake Total 1200 ml 700 ml Balance 1200 ml 700 ml Results Result Diagram: 02/24/17 0522 02/24/17 0522 Results 24 hrs Laboratory Tests Test 02/23/17 20:32 02/24/17 05:22 02/24/17 07:45 02/24/17 11:43 Bedside Glucose 120 90 101 White Blood Count 9.0 # Red Blood Count 3.79 L Hemoglobin 11.9 L Hematocrit 36.1 L Mean Corpuscular Volume 95.3 Mean Corpuscular Hemoglobin 31.4 Mean Corpuscular Hemoglobin Concent 33.0 Red Cell Distribution Width 13.2 Platelet Count 147 Mean Platelet Volume 9.2 Neutrophils % 58.0 Lymphocytes % 21.0 Monocytes % 17.3 H Eosinophils % 2.7 Basophils % 0.7 Nucleated Red Blood Cells % 0.2 H Neutrophils # (Manual) 5.2 Lymphocytes # 1.9 Monocytes # 1.6 H Eosinophils # 0.2 Basophils # 0.1 Nucleated Red Blood Cells # 0.0 Sodium Level 136 Potassium Level 5.4 H Chloride Level 94 L Carbon Dioxide Level 20 L Anion Gap 27 H Blood Urea Nitrogen 78 H Creatinine 10.70 H Glucose Level 89 Calcium Level 8.0 L Total Bilirubin 0.0 L Direct Bilirubin 0.00 Indirect Bilirubin 0.0 Aspartate Amino Transf (AST/SGOT) 25 Alanine Aminotransferase (ALT/SGPT) 22 Alkaline Phosphatase 46 Total Protein 7.0 Albumin 3.4 Globulin 3.60 H Albumin/Globulin Ratio 0.94 Random Vancomycin Level 23.8 Test 02/24/17 17:20 Bedside Glucose 130 Medications Medications Current Medications Aspirin 81 mg 81 mg DAILY PO Last administered on 02/24/17 08:12; Admin Dose 81 MG; Start 02/23/17 at 09:00 Cefepime HCl (Maxipime 1gm/50 ml (Pmx)) 50 ml @ 100 mls/hr Q24H IVPB Last administered on 02/24/17 05:58; Admin Dose 100 MLS/HR; Start 02/23/17 at 06:00 Diagnostic Test (Pha) (Accu-Chek) 1 ea 02 XX ; Start 02/23/17 at 02:00 Insulin Glargine (Lantus) 34 unit DAILY@08 SC Last administered on 02/24/17 08 :12; Admin Dose 34 UNIT; Start 02/23/17 at 08:00 Miscellaneous Information 1 ea NOTE XX ; Start 02/22/17 at 14:00 Glucose (Glutose) 15 gm Q15M PRN PO DECREASED GLUCOSE; Start 02/22/17 at 14:00 Glucose (Glutose) 22.5 gm Q15M PRN PO DECREASED GLUCOSE; Start 02/22/17 at 14: 00 Dextrose (D50w Syringe) 25 ml Q15M PRN IV DECREASED GLUCOSE; Start 02/22/17 at 14:00 Dextrose (D50w Syringe) 50 ml Q15M PRN IV DECREASED GLUCOSE; Start 02/22/17 at 14:00 Glucagon (Glucagen) 1 mg Q15M PRN IM DECREASED GLUCOSE; Start 02/22/17 at 14:00 Glucose (Glutose) 15 gm Q15M PRN BUCCAL DECREASED GLUCOSE; Start 02/22/17 at 14 :00 SHAYNA MADDEN MD Feb 24, 2017 17:43
[2017-02-25 02:00] VITALS: BP 127/60; RESP 20
[2017-02-25] MEDS: ACCU-CHEK XX SCH (02:00)
--- NOTE | 2017-02-25 04:25 | PN ---
DATE: 02/24/2017 SUBJECTIVE DATA: No acute changes overnight. The patient is alert, feels good, sitting comfortably in bed. Family at bedside. He is afebrile. LABORATORY AND DIAGNOSTIC DATA: WBC 9, H and H 11.9 and 36.1, and platelets 147. INDWELLINGS: Right chest PermCath. MICROBIOLOGY: Blood culture growing gram-negative rods. ANTIMICROBIALS: The patient is on IV cefepime and vancomycin. PHYSICAL EXAMINATION: GENERAL: Morbidly obese, middle-aged man, who is awake, in no distress. HEENT: Head atraumatic, normocephalic. Sclerae anicteric. Buccal mucosa pink. NECK: Obese. CHEST: Rise symmetrical. Breath sounds diminished at bases. HEART: S1, S2. ABDOMEN: Soft, bowel sounds present. EXTREMITIES: Without cyanosis. ASSESSMENT: 1. Wound gram-negative luis enrique bacteremia likely secondary to infected PermCath. 2. End-stage renal disease, hemodialysis dependent. 3. Morbid obesity. 4. Diabetes. 5. Hypertension. PLAN: 1. The patient remains stable. 2. Blood cultures are pending. 3. Chest x-ray was negative, therefore we will stop vancomycin and keep him on cefepime. 4. We will repeat blood culture with hemodialysis today. 5. Follow on final cultures. 6. Consider PermCath change with line holiday between new catheter placement. Above was discussed with Dr. Gaines. Dictated By: Evgeny Wharton NP /valerie/liberty /Document#: [id number] OVIDIO
[2017-02-25] MEDS: CEFEPIME 1GM/50 ML (PMX) 50 ML IVPB SCH (06:00)
[2017-02-25] MEDS: Insulin NOVOLOG SS MILD Algorithm (SS with meals and bedtime) SC SCH ×4 (07:30→20:49)
[2017-02-25] MEDS: INSULIN ASPART [NOVOLOG] 3 ML PEN SC SCH ×4 (07:35→17:35)
[2017-02-25] MEDS: INSULIN GLARGINE [LANtus] 3 ML PEN SC SCH (07:56)
[2017-02-25] MEDS: ASPIRIN (EC) 81 MG TAB PO SCH (08:01)
[2017-02-25 10:12] LABS: BASOPHILS % 0.5 % (0.0-2.0); EOSINOPHILS # 0.2 10^3/ul (0.0-0.5); HEMATOCRIT 39.3 % (42.0-52.0); HEMOGLOBIN 12.4 g/dl (14.0-18.0); LYMPHOCYTES # 2.3 10^3/ul (0.8-2.9); LYMPHOCYTES % 26.3 % (15.0-51.0); MEAN CORPUSCULAR HEMOGLOBIN 30.4 pg (29.0-33.0); MEAN CORPUSCULAR HGB CONC 31.6 g/dl (32.0-37.0); MEAN CORPUSCULAR VOLUME 96.3 fl (82.0-101.0); MEAN PLATELET VOLUME 9.3 fl (7.4-10.4); MONOCYTE # 1.1 10^3/ul (0.3-0.9); MONOCYTES % 13.2 % (0.0-11.0); NEUTROPHILS % 57.6 % (39.0-77.0); PLATELET COUNT 141 10^3/UL (140-415); RED BLOOD COUNT 4.08 10^6/ul (4.70-6.10); RED CELL DISTRIBUTION WIDTH 13.5 % (11.5-14.5); WHITE BLOOD COUNT 8.6 10^3/ul (4.8-10.8)
[2017-02-25 11:02] LABS: ALBUMIN 3.9 g/dl (3.3-4.9); CALCIUM 8.4 mg/dl (8.4-10.2); CREATININE 9.75 mg/dl (0.61-1.24); POTASSIUM 4.9 mmol/L (3.5-5.1); TOTAL PROTEIN 7.8 g/dl (6.1-8.1)
[2017-02-25] MEDS ORDERED: LIDOCAINE 1% (MPF) 30 ML INJ INJ PRN (12:30)
--- NOTE | 2017-02-25 13:14 | PN ---
DATE: 02/25/2017 SUBJECTIVE DATA: Patient is stable. No events overnight. Patient had hemodialysis yesterday, tolerated well. OBJECTIVE DATA: VITAL SIGNS: Blood pressure is 120/67, respirations 20, pulse 85, and temp 98.6. HEENT: Head is normocephalic. NECK: Supple. HEART: Regular rate. LUNGS: Diminished breath sounds at the base. ABDOMEN: Soft, nontender to palpation. No guarding. EXTREMITIES: Negative for clubbing, cyanosis. No edema. DERMATOLOGIC: Clean. No rashes. MUSCULOSKELETAL: No joint effusion. NEUROLOGIC: Unchanged exam. MEDICATIONS: Reviewed. LABORATORY AND DIAGNOSTIC DATA: Currently pending. ASSESSMENT AND PLAN: 1. End-stage renal disease. The patient hemodialysis yesterday, tolerated well. Plan for next dialysis on Monday. 2. Sepsis, gram-negative bacteremia. Etiology secondary to line infection. The patient's repeat cultures been negative. However, after communicating with Infectious Disease we will have the patient's Permacath removed with a line holiday before new catheter was placed. Continue antibiotic regimen. 3. Anemia. Monitor hemoglobin and hematocrit levels. We will give Epogen as needed. 4. Mineral bone disorder. Monitor calcium and phosphorus levels. 5. Volume overload. Continue ultrafiltration dialysis. 6. Diabetes. Continue Accu-Cheks and sliding scale. 7. Hypertension. Continue current blood pressure regimen. Dictated By: Jacobo Gaines DO /valerie/liberty /Document#: [id number]
--- NOTE | 2017-02-25 13:26 | OPR ---
Date/Time of Note Date/Time of Note DATE: 02/25/17 TIME: 13:24 Operative Report Procedure Date: Feb 25, 2017 Preoperative Diagnosis Infected permacath Postoperative Diagnosis Infected permacath Operation Performed Removal of infected permacath Surgeon: JALEEL LUA MD Anesthesia Type: other Estimated Blood Loss: none Transfusion Required: no Specimen: none Grafts/Implants: none Complications: no Pt Condition Post Procedure: stable Indications Infected permacath Operative\Procedure Findings Dictated Procedure Description Patient was placed in the supine position prepped and draped in usual sterile fashion response comp occasions alternative therapies explained to the patient consent obtained 1% lidocaine was used throughout the operation for local anesthesia the cuff of the catheter was grabbed using a hemostat catheter and the cuff were removed in entirety appropriate dressings applied patient tolerated paste procedure well JALEEL LUA MD Feb 25, 2017 13:26
[2017-02-25 14:00] VITALS: BP 168/65; RESP 21
--- NOTE | 2017-02-25 15:51 | PN ---
Date/Time of Note Date/Time of Note DATE: 02/25/17 TIME: 15:49 Assessment/Plan VTE Prophylaxis VTE Prophylaxis Intervention: heparin Lines/Catheters IV Catheter Type (from Nrs): permacath Urinary Cath still in place: No Assessment/Plan Chief Complaint/Hosp Course 51 yo male wiht h/o ESRD on HD, DMII, morbid obesity, hypertension who presents with fevers and rigors while receiving HD, found to have GNR bactermia Sepsis from K pneumo bacteremia - Continue cefepime for now, narrow per ID consult ESRD: - HD per renal - Will need new access to be placed next week DMII: - Continue basal/bolus insulin Hypertension: - Will hold antihypertensives while septic PPx: HSQ Dispo to self care following resolution of illness Problems: Subjective 24 Hr Interval Summary Free Text/Dictation Permcath removed, looked infected per report Patient feels well, no complaints Sensitve Klebs on BC speciation Exam/Review of Systems Vital Signs Vitals Vital Signs Date Time Temp Pulse Resp B/P Pulse Ox O2 Delivery O2 Flow Rate FiO2 02/25/17 02:00 98.3 20 127/60 93 Room Air 02/24/17 17:00 85 Intake and Output 02/24/17 02/24/17 02/25/17 15:00 23:00 07:00 Intake Total 1640 ml 600 ml Output Total 4500 ml Balance -2860 ml 600 ml Results Result Diagram: 02/25/1791802/25/17918 Results 24 hrs Laboratory Tests Test 02/24/17 17:20 02/24/17 20:15 02/24/17 23:29 02/25/17 00:50 Bedside Glucose 130 169 85 142 Test 02/25/17 07:55 02/25/17 09:19 02/25/17 11:53 Bedside Glucose 107 128 White Blood Count 8.6 Red Blood Count 4.08 L Hemoglobin 12.4 L Hematocrit 39.3 L Mean Corpuscular Volume 96.3 Mean Corpuscular Hemoglobin 30.4 Mean Corpuscular Hemoglobin Concent 31.6 L Red Cell Distribution Width 13.5 Platelet Count 141 Mean Platelet Volume 9.3 Neutrophils % 57.6 Lymphocytes % 26.3 Monocytes % 13.2 H Eosinophils % 2.0 Basophils % 0.5 Nucleated Red Blood Cells % 0.0 Neutrophils # (Manual) 4.9 Lymphocytes # 2.3 Monocytes # 1.1 H Eosinophils # 0.2 Basophils # 0.0 Nucleated Red Blood Cells # 0.0 Sodium Level 142 Potassium Level 4.9 Chloride Level 91 L Carbon Dioxide Level 28 Anion Gap 28 H Blood Urea Nitrogen 63 H Creatinine 9.75 H Glucose Level 223 #H Calcium Level 8.4 Total Bilirubin 0.0 L Direct Bilirubin 0.00 Indirect Bilirubin 0.0 Aspartate Amino Transf (AST/SGOT) 22 Alanine Aminotransferase (ALT/SGPT) 23 Alkaline Phosphatase 60 Total Protein 7.8 Albumin 3.9 Globulin 3.90 H Albumin/Globulin Ratio 1.00 Medications Medications Current Medications Aspirin 81 mg 81 mg DAILY PO Last administered on 02/25/17 08:01; Admin Dose 81 MG; Start 02/23/17 at 09:00 Cefepime HCl (Maxipime 1gm/50 ml (Pmx)) 50 ml @ 100 mls/hr Q24H IVPB Last administered on 02/25/17 06:00; Admin Dose 100 MLS/HR; Start 02/23/17 at 06:00 Diagnostic Test (Pha) (Accu-Chek) 1 ea 02 XX ; Start 02/23/17 at 02:00 Insulin Glargine (Lantus) 34 unit DAILY@08 SC Last administered on 02/25/17 07 :56; Admin Dose 34 UNIT; Start 02/23/17 at 08:00 Miscellaneous Information 1 ea NOTE XX ; Start 02/22/17 at 14:00 Glucose (Glutose) 15 gm Q15M PRN PO DECREASED GLUCOSE; Start 02/22/17 at 14:00 Glucose (Glutose) 22.5 gm Q15M PRN PO DECREASED GLUCOSE; Start 02/22/17 at 14: 00 Dextrose (D50w Syringe) 25 ml Q15M PRN IV DECREASED GLUCOSE; Start 02/22/17 at 14:00 Dextrose (D50w Syringe) 50 ml Q15M PRN IV DECREASED GLUCOSE; Start 02/22/17 at 14:00 Glucagon (Glucagen) 1 mg Q15M PRN IM DECREASED GLUCOSE; Start 02/22/17 at 14:00 Glucose (Glutose) 15 gm Q15M PRN BUCCAL DECREASED GLUCOSE; Start 02/22/17 at 14 :00 Lidocaine (Xylocaine 1% (Mpf)) 30 ml ONCE PRN INJ ANESTHESIA Last administered on 02/25/17t 13:36; Admin Dose 30 ML; Start 02/25/17 at 12:30 SHAYNA MADDEN MD Feb 25, 2017 15:51
--- NOTE | 2017-02-25 18:19 | CONS ---
Date/Time of Note Date/Time of Note DATE: 02/25/17 TIME: 18:12 Assessment/Plan Assessment/Plan Chief Complaint/Hosp Course ID PROGRESS NOTE CURRENT ABX: Vanco IV + Cefepime 24H INTERVAL SUMMARY * Awake, alert, responsive,feels well, R-CXT PermCath DC'd, no new issues, no fevers, no complaints * MICROBIOLOGY: BCx (+) GNR KP => Repeat BCx (-) * BLOOD CULTURE Final BCULT GRAM BOTTLE 1 Gram negative rods . seen on gram stain of the broth Organism 1 K.PNEUMONIAE SSP PNEUMONIA K PNE SPP M.I.C. RX --------- --- CEFAZOLIN I CEFOTAXIME S CIPROFLOXACIN <=0.25 S GENTAMICIN <=1 S LEVOFLOXACIN <=0.12 S TOBRAMYCIN <=1 S TRIMETHOPRIM/SULFAMETHOXAZOLE <=20 S EXAM GEN: Super morbid obese M, A/A/O, VSS, NAD, no fevers, good historian HEENT: Unremarkable NECK: Supple CVS: RRR, S1 and S2 CHEST: Equal chest rise bilaterally without dyspnea ABD: Soft, NT, + BS EXT: No c/c/e SKIN: (+)Generalized diffuse rash of uremia ID ASSESSMENT 51 yo M admit with: 1. GNR sepsis w/(+)GNR KP bacteremia on admission due to infected PermCath * PermCath DC'd * Repeat BCx (-) * Fevers on admission = resolved * Leukocytosis on admission = resolved 2. End-stage renal disease, hemodialysis dependent. * LUEXT fistula present - not ripe 3. Morbid obesity. 4. Diabetes. 5. Hypertension. 6. Rash -- consistent w/rash of uremia (-) MRSA Nares CURRENT ABX: Vanco IV + Cefepime ID RECOMMENDATIONS 1. Continue current ABX 2. Line holiday with temporary Gurdeep Problems: Consultation Date/Type/Reason Admit Date/Time Feb 22, 2017 at 05:53 Initial Consult Date 02/23/17 Type of Consultation: ID Exam/Review of Systems Vital Signs Vitals Vital Signs Date Time Temp Pulse Resp B/P Pulse Ox O2 Delivery O2 Flow Rate FiO2 02/25/17 14:00 98.4 89 21 168/65 97 02/25/17 02:00 Room Air Intake and Output 02/24/17 02/24/17 02/25/17 14:59 22:59 06:59 Intake Total 1640 ml 600 ml Output Total 4500 ml Balance -2860 ml 600 ml Results Result Diagram: 02/25/1791802/25/17918 Results 24 hrs Laboratory Tests Test 02/24/17 20:15 02/24/17 23:29 02/25/17 00:50 02/25/17 07:55 Bedside Glucose 169 85 142 107 Test 02/25/17 09:19 02/25/17 11:53 02/25/17 17:33 White Blood Count 8.6 Red Blood Count 4.08 L Hemoglobin 12.4 L Hematocrit 39.3 L Mean Corpuscular Volume 96.3 Mean Corpuscular Hemoglobin 30.4 Mean Corpuscular Hemoglobin Concent 31.6 L Red Cell Distribution Width 13.5 Platelet Count 141 Mean Platelet Volume 9.3 Neutrophils % 57.6 Lymphocytes % 26.3 Monocytes % 13.2 H Eosinophils % 2.0 Basophils % 0.5 Nucleated Red Blood Cells % 0.0 Neutrophils # (Manual) 4.9 Lymphocytes # 2.3 Monocytes # 1.1 H Eosinophils # 0.2 Basophils # 0.0 Nucleated Red Blood Cells # 0.0 Sodium Level 142 Potassium Level 4.9 Chloride Level 91 L Carbon Dioxide Level 28 Anion Gap 28 H Blood Urea Nitrogen 63 H Creatinine 9.75 H Glucose Level 223 #H Calcium Level 8.4 Total Bilirubin 0.0 L Direct Bilirubin 0.00 Indirect Bilirubin 0.0 Aspartate Amino Transf (AST/SGOT) 22 Alanine Aminotransferase (ALT/SGPT) 23 Alkaline Phosphatase 60 Total Protein 7.8 Albumin 3.9 Globulin 3.90 H Albumin/Globulin Ratio 1.00 Bedside Glucose 128 123 Medications Medications Current Medications Aspirin 81 mg 81 mg DAILY PO Last administered on 02/25/17 08:01; Admin Dose 81 MG; Start 02/23/17 at 09:00 Cefepime HCl (Maxipime 1gm/50 ml (Pmx)) 50 ml @ 100 mls/hr Q24H IVPB Last administered on 02/25/17 06:00; Admin Dose 100 MLS/HR; Start 02/23/17 at 06:00 Diagnostic Test (Pha) (Accu-Chek) 1 ea 02 XX ; Start 02/23/17 at 02:00 Insulin Glargine (Lantus) 34 unit DAILY@08 SC Last administered on 02/25/17 07 :56; Admin Dose 34 UNIT; Start 02/23/17 at 08:00 Miscellaneous Information 1 ea NOTE XX ; Start 02/22/17 at 14:00 Glucose (Glutose) 15 gm Q15M PRN PO DECREASED GLUCOSE; Start 02/22/17 at 14:00 Glucose (Glutose) 22.5 gm Q15M PRN PO DECREASED GLUCOSE; Start 02/22/17 at 14: 00 Dextrose (D50w Syringe) 25 ml Q15M PRN IV DECREASED GLUCOSE; Start 02/22/17 at 14:00 Dextrose (D50w Syringe) 50 ml Q15M PRN IV DECREASED GLUCOSE; Start 02/22/17 at 14:00 Glucagon (Glucagen) 1 mg Q15M PRN IM DECREASED GLUCOSE; Start 02/22/17 at 14:00 Glucose (Glutose) 15 gm Q15M PRN BUCCAL DECREASED GLUCOSE; Start 02/22/17 at 14 :00 Lidocaine (Xylocaine 1% (Mpf)) 30 ml ONCE PRN INJ ANESTHESIA Last administered on 02/25/17 13:36; Admin Dose 30 ML; Start 02/25/17 at 12:30 TIA RIVERA NP Feb 25, 2017 18:19
[2017-02-25 20:00] VITALS: BP 125/64; RESP 20
[2017-02-26 02:00] VITALS: BP 125/58; RESP 20
[2017-02-26] MEDS: ACCU-CHEK XX SCH (02:00)
[2017-02-26] MEDS: CEFEPIME 1GM/50 ML (PMX) 50 ML IVPB SCH (05:34)
[2017-02-26] MEDS: Insulin NOVOLOG SS MILD Algorithm (SS with meals and bedtime) SC SCH ×4 (07:30→20:24)
[2017-02-26] MEDS: INSULIN ASPART [NOVOLOG] 3 ML PEN SC SCH ×4 (07:35→17:30)
[2017-02-26 08:00] VITALS: BP 154/72; RESP 21
[2017-02-26] MEDS: INSULIN GLARGINE [LANtus] 3 ML PEN SC SCH (08:21)
[2017-02-26] MEDS: ASPIRIN (EC) 81 MG TAB PO SCH (08:21)
[2017-02-26 08:47] LABS: BASOPHILS % 0.5 % (0.0-2.0); EOSINOPHILS # 0.2 10^3/ul (0.0-0.5); EOSINOPHILS % 2.2 % (0.0-7.0); HEMATOCRIT 37.4 % (42.0-52.0); HEMOGLOBIN 12.1 g/dl (14.0-18.0); LYMPHOCYTES # 2.6 10^3/ul (0.8-2.9); LYMPHOCYTES % 32.8 % (15.0-51.0); MEAN CORPUSCULAR HEMOGLOBIN 31.2 pg (29.0-33.0); MEAN CORPUSCULAR HGB CONC 32.4 g/dl (32.0-37.0); MEAN CORPUSCULAR VOLUME 96.4 fl (82.0-101.0); MEAN PLATELET VOLUME 9.2 fl (7.4-10.4); MONOCYTE # 0.9 10^3/ul (0.3-0.9); MONOCYTES % 11.5 % (0.0-11.0); NEUTROPHILS % 52.5 % (39.0-77.0); PLATELET COUNT 147 10^3/UL (140-415); RED BLOOD COUNT 3.88 10^6/ul (4.70-6.10); RED CELL DISTRIBUTION WIDTH 13.2 % (11.5-14.5); WHITE BLOOD COUNT 7.8 10^3/ul (4.8-10.8)
[2017-02-26 09:33] LABS: ALBUMIN 3.5 g/dl (3.3-4.9); ALBUMIN/GLOBULIN RATIO 0.97; CREATININE 10.63 mg/dl (0.61-1.24); POTASSIUM 5.2 mmol/L (3.5-5.1); TOTAL PROTEIN 7.1 g/dl (6.1-8.1)
--- NOTE | 2017-02-26 13:43 | PN ---
DATE: 02/26/2017 SUBJECTIVE DATA: The patient yesterday had his PermCath removed without any complications. No other events noted. OBJECTIVE DATA: VITAL SIGNS: Blood pressure 125/58, respirations 20, pulse 78, temperature 98.1. HEENT: Head is normocephalic. NECK: Supple. HEART: Regular rate. LUNGS: Diminished breath sounds at the base. ABDOMEN: Soft, nontender to palpation. No rebound or guarding. EXTREMITIES: Negative for clubbing, cyanosis. No edema. DERMATOLOGIC: Clean. No rashes. MUSCULOSKELETAL: No joint effusion. NEUROLOGIC: No change in exam. MEDICATIONS: Reviewed. LABORATORY AND DIAGNOSTIC DATA: Currently pending. ASSESSMENT AND PLAN: 1. End-stage renal disease. The patient's last hemodialysis was Monday. Anticipate next hemodialysis tomorrow. 2. Sepsis with gram-negative bacteremia. Etiology secondary to line infection. The patient's PermCath was removed. Continue current antibiotic regimen. 3. Access. The patient's PermCath was removed. Will likely need a Gurdeep catheter in the next 24 hours to initiate hemodialysis. Will follow up with vascular surgeon Dr. Miranda. 4. Anemia. Monitor hemoglobin and hematocrit levels. Continue Epogen. 5. Mineral bone disorder. Monitor calcium and phosphorus levels. 6. Volume overload. Continue ultrafiltration dialysis. 7. Diabetes. Continue Accu-Cheks and insulin sliding scale. 8. Hypertension. Continue current blood pressure regimen. Dictated By: Jacobo Gaines DO /valerie/deniz /Document#: [id number]
[2017-02-26 14:00] VITALS: BP 152/73; RESP 20
--- NOTE | 2017-02-26 14:45 | CONS ---
Date/Time of Note Date/Time of Note DATE: 02/26/17 TIME: 14:34 Assessment/Plan Assessment/Plan Chief Complaint/Hosp Course Assessment/Plan Chief Complaint/Hosp Course ID PROGRESS NOTE CURRENT ABX: Vanco IV + Cefepime 24H INTERVAL SUMMARY * Awake. Alert. Denies Pain. R-CXT PermCath DC'd. * MICROBIOLOGY: BCx (+) GNR KP => Repeat BCx (-) * BLOOD CULTURE Final BCULT GRAM BOTTLE 1 Gram negative rods . seen on gram stain of the broth Organism 1 K.PNEUMONIAE SSP PNEUMONIA K PNE SPP M.I.C. RX --------- --- CEFAZOLIN I CEFOTAXIME S CIPROFLOXACIN <=0.25 S GENTAMICIN <=1 S LEVOFLOXACIN <=0.12 S TOBRAMYCIN <=1 S TRIMETHOPRIM/SULFAMETHOXAZOLE <=20 S EXAM GEN: Super morbid obese M, A/A/O, VSS, NAD, no fevers, good historian HEENT: Unremarkable NECK: Supple CVS: RRR, S1 and S2 CHEST: Equal chest rise bilaterally without dyspnea ABD: Soft, NT, + BS EXT: No c/c/e SKIN: (+)Generalized diffuse rash of uremia ID ASSESSMENT 51 yo M admit with: 1. GNR sepsis w/(+)GNR KP bacteremia on admission due to infected PermCath * PermCath DC'd * Repeat BCx (-) * Fevers on admission = resolved * Leukocytosis on admission = resolved 2. End-stage renal disease, hemodialysis dependent. * LUEXT fistula present - not ripe 3. Morbid obesity. 4. Diabetes. 5. Hypertension. 6. Rash -- consistent w/rash of uremia (-) MRSA Nares CURRENT ABX: Vanco IV + Cefepime ID RECOMMENDATIONS 1. Continue current ABX 2. Line holiday with temporary Gurdeep 3. Avoid Nephrotoxic Drugs. Monitor Labs. Problems: Consultation Date/Type/Reason Admit Date/Time Feb 22, 2017 at 05:53 Initial Consult Date 02/23/17 Type of Consultation: ID Exam/Review of Systems Vital Signs Vitals Vital Signs Date Time Temp Pulse Resp B/P Pulse Ox O2 Delivery O2 Flow Rate FiO2 02/26/17 08:00 97.7 80 21 154/72 94 02/25/17 02:00 Room Air Intake and Output 02/25/17 02/25/17 02/26/17 15:00 23:00 07:00 Intake Total 640 ml 480 ml Balance 640 ml 480 ml Results Result Diagram: 02/26/17 0753 02/26/17 0753 Results 24 hrs Laboratory Tests Test 02/25/17 17:33 02/25/17 20:42 02/26/17 02:31 02/26/17 07:53 Bedside Glucose 123 213 96 White Blood Count 7.8 Red Blood Count 3.88 L Hemoglobin 12.1 L Hematocrit 37.4 L Mean Corpuscular Volume 96.4 Mean Corpuscular Hemoglobin 31.2 Mean Corpuscular Hemoglobin Concent 32.4 Red Cell Distribution Width 13.2 Platelet Count 147 Mean Platelet Volume 9.2 Neutrophils % 52.5 Lymphocytes % 32.8 Monocytes % 11.5 H Eosinophils % 2.2 Basophils % 0.5 Nucleated Red Blood Cells % 0.0 Neutrophils # (Manual) 4.1 Lymphocytes # 2.6 Monocytes # 0.9 Eosinophils # 0.2 Basophils # 0.0 Nucleated Red Blood Cells # 0.0 Sodium Level 139 Potassium Level 5.2 H Chloride Level 94 L Carbon Dioxide Level 23 Anion Gap 27 H Blood Urea Nitrogen 78 H Creatinine 10.63 H Glucose Level 100 # Calcium Level 8.0 L Total Bilirubin 0.0 L Direct Bilirubin 0.00 Indirect Bilirubin 0.0 Aspartate Amino Transf (AST/SGOT) 26 Alanine Aminotransferase (ALT/SGPT) 23 Alkaline Phosphatase 54 Total Protein 7.1 Albumin 3.5 Globulin 3.60 H Albumin/Globulin Ratio 0.97 Test 02/26/17 08:12 02/26/17 12:11 Bedside Glucose 108 145 Medications Medications Current Medications Aspirin 81 mg 81 mg DAILY PO Last administered on 02/26/17 08:21; Admin Dose 81 MG; Start 02/23/17 at 09:00 Cefepime HCl (Maxipime 1gm/50 ml (Pmx)) 50 ml @ 100 mls/hr Q24H IVPB Last administered on 02/26/17 05:34; Admin Dose 100 MLS/HR; Start 02/23/17 at 06:00 Diagnostic Test (Pha) (Accu-Chek) 1 ea 02 XX ; Start 02/23/17 at 02:00 Insulin Glargine (Lantus) 34 unit DAILY@08 SC Last administered on 02/26/17 08 :21; Admin Dose 34 UNIT; Start 02/23/17 at 08:00 Miscellaneous Information 1 ea NOTE XX ; Start 02/22/17 at 14:00 Glucose (Glutose) 15 gm Q15M PRN PO DECREASED GLUCOSE; Start 02/22/17 at 14:00 Glucose (Glutose) 22.5 gm Q15M PRN PO DECREASED GLUCOSE; Start 02/22/17 at 14: 00 Dextrose (D50w Syringe) 25 ml Q15M PRN IV DECREASED GLUCOSE; Start 02/22/17 at 14:00 Dextrose (D50w Syringe) 50 ml Q15M PRN IV DECREASED GLUCOSE; Start 02/22/17 at 14:00 Glucagon (Glucagen) 1 mg Q15M PRN IM DECREASED GLUCOSE; Start 02/22/17 at 14:00 Glucose (Glutose) 15 gm Q15M PRN BUCCAL DECREASED GLUCOSE; Start 02/22/17 at 14 :00 Lidocaine (Xylocaine 1% (Mpf)) 30 ml ONCE PRN INJ ANESTHESIA Last administered on 02/25/17 13:36; Admin Dose 30 ML; Start 02/25/17 at 12:30 ASHKAN ACEVEDO NP Feb 26, 2017 14:45
--- NOTE | 2017-02-26 17:55 | PN ---
Date/Time of Note Date/Time of Note DATE: 02/26/17 TIME: 17:54 Assessment/Plan VTE Prophylaxis VTE Prophylaxis Intervention: LMWH Lines/Catheters IV Catheter Type (from Nrs): Saline Lock Urinary Cath still in place: No Assessment/Plan Chief Complaint/Hosp Course 51 yo male wiht h/o ESRD on HD, DMII, morbid obesity, hypertension who presents with fevers and rigors while receiving HD, found to have GNR bactermia Sepsis from K pneumo bacteremia 2/2 HD line infection: - Continue cefepime for now, narrow per ID consult - Infected permacath has been removed - Monitor BC ESRD: - HD per renal, however now has no HD access - Will need new access to be placed next week for HD DMII: - Continue basal/bolus insulin Hypertension: - Will hold antihypertensives while septic PPx: HSQ Dispo to self care following resolution of illness Problems: Subjective 24 Hr Interval Summary Free Text/Dictation Doing well no complaints Exam/Review of Systems Vital Signs Vitals Vital Signs Date Time Temp Pulse Resp B/P Pulse Ox O2 Delivery O2 Flow Rate FiO2 02/26/17 14:00 98.0 83 20 152/73 96 02/25/17 02:00 Room Air Intake and Output 02/25/17 02/25/17 02/26/17 15:00 23:00 07:00 Intake Total 640 ml 480 ml Balance 640 ml 480 ml Results Result Diagram: 02/26/17 0753 02/26/17 0753 Results 24 hrs Laboratory Tests Test 02/25/17 20:42 02/26/17 02:31 02/26/17 07:53 02/26/17 08:12 Bedside Glucose 213 96 108 White Blood Count 7.8 Red Blood Count 3.88 L Hemoglobin 12.1 L Hematocrit 37.4 L Mean Corpuscular Volume 96.4 Mean Corpuscular Hemoglobin 31.2 Mean Corpuscular Hemoglobin Concent 32.4 Red Cell Distribution Width 13.2 Platelet Count 147 Mean Platelet Volume 9.2 Neutrophils % 52.5 Lymphocytes % 32.8 Monocytes % 11.5 H Eosinophils % 2.2 Basophils % 0.5 Nucleated Red Blood Cells % 0.0 Neutrophils # (Manual) 4.1 Lymphocytes # 2.6 Monocytes # 0.9 Eosinophils # 0.2 Basophils # 0.0 Nucleated Red Blood Cells # 0.0 Sodium Level 139 Potassium Level 5.2 H Chloride Level 94 L Carbon Dioxide Level 23 Anion Gap 27 H Blood Urea Nitrogen 78 H Creatinine 10.63 H Glucose Level 100 # Calcium Level 8.0 L Total Bilirubin 0.0 L Direct Bilirubin 0.00 Indirect Bilirubin 0.0 Aspartate Amino Transf (AST/SGOT) 26 Alanine Aminotransferase (ALT/SGPT) 23 Alkaline Phosphatase 54 Total Protein 7.1 Albumin 3.5 Globulin 3.60 H Albumin/Globulin Ratio 0.97 Test 02/26/17 12:11 02/26/17 17:14 Bedside Glucose 145 169 Medications Medications Current Medications Aspirin 81 mg 81 mg DAILY PO Last administered on 02/26/17 08:21; Admin Dose 81 MG; Start 02/23/17 at 09:00 Cefepime HCl (Maxipime 1gm/50 ml (Pmx)) 50 ml @ 100 mls/hr Q24H IVPB Last administered on 02/26/17 05:34; Admin Dose 100 MLS/HR; Start 02/23/17 at 06:00 Diagnostic Test (Pha) (Accu-Chek) 1 ea 02 XX ; Start 02/23/17 at 02:00 Insulin Glargine (Lantus) 34 unit DAILY@08 SC Last administered on 02/26/17 08 :21; Admin Dose 34 UNIT; Start 02/23/17 at 08:00 Miscellaneous Information 1 ea NOTE XX ; Start 02/22/17 at 14:00 Glucose (Glutose) 15 gm Q15M PRN PO DECREASED GLUCOSE; Start 02/22/17 at 14:00 Glucose (Glutose) 22.5 gm Q15M PRN PO DECREASED GLUCOSE; Start 02/22/17 at 14: 00 Dextrose (D50w Syringe) 25 ml Q15M PRN IV DECREASED GLUCOSE; Start 02/22/17 at 14:00 Dextrose (D50w Syringe) 50 ml Q15M PRN IV DECREASED GLUCOSE; Start 02/22/17 at 14:00 Glucagon (Glucagen) 1 mg Q15M PRN IM DECREASED GLUCOSE; Start 02/22/17 at 14:00 Glucose (Glutose) 15 gm Q15M PRN BUCCAL DECREASED GLUCOSE; Start 02/22/17 at 14 :00 Lidocaine (Xylocaine 1% (Mpf)) 30 ml ONCE PRN INJ ANESTHESIA Last administered on 02/25/17 13:36; Admin Dose 30 ML; Start 02/25/17 at 12:30 SHAYNA MADDEN MD Feb 26, 2017 17:55
[2017-02-26 20:37] VITALS: BP 140/65; RESP 16
[2017-02-26] MEDS ORDERED: BISACODYL (EC) 5 MG TAB PO PRN (21:00)
[2017-02-26] MEDS: DOCUSATE SODIUM 100 MG CAP PO SCH (21:05)
[2017-02-26] MEDS ORDERED: ACETAMINOPHEN 325 MG TAB ONE (23:41)
[2017-02-27] MEDS: ACCU-CHEK XX SCH ×2 (01:24→20:51)
[2017-02-27] MEDS: ACETAMINOPHEN 325 MG TAB PO PRN (02:34)
[2017-02-27 02:40] VITALS: BP 139/57; RESP 18
[2017-02-27] MEDS: CEFEPIME 1GM/50 ML (PMX) 50 ML IVPB SCH (05:17)
[2017-02-27 06:14] LABS: CALCIUM 7.8 mg/dl (8.4-10.2); CREATININE 11.76 mg/dl (0.61-1.24); MAGNESIUM 2.5 mg/dl (1.7-2.5); PHOSPHORUS 10.9 mg/dl (2.5-4.9); POTASSIUM 5.4 mmol/L (3.5-5.1)
[2017-02-27] MEDS: Insulin NOVOLOG SS MILD Algorithm (SS with meals and bedtime) SC SCH ×4 (07:30→20:51)
[2017-02-27] MEDS: INSULIN ASPART [NOVOLOG] 3 ML PEN SC SCH ×3 (07:35→17:46)
[2017-02-27 07:56] VITALS: BP 131/63; RESP 19
[2017-02-27] MEDS: DOCUSATE SODIUM 100 MG CAP PO SCH ×2 (08:00→20:51)
[2017-02-27] MEDS: ASPIRIN (EC) 81 MG TAB PO SCH (08:00)
[2017-02-27] MEDS: INSULIN GLARGINE [LANtus] 3 ML PEN SC SCH (08:03)
[2017-02-27 14:13] VITALS: BP 145/65; RESP 19
--- NOTE | 2017-02-27 15:54 | PN ---
Date/Time of Note Date/Time of Note DATE: 02/27/17 TIME: 15:53 Assessment/Plan VTE Prophylaxis VTE Prophylaxis Intervention: ambulation Lines/Catheters IV Catheter Type (from Nrs): Saline Lock Urinary Cath still in place: No Assessment/Plan Chief Complaint/Hosp Course 51 yo male wiht h/o ESRD on HD, DMII, morbid obesity, hypertension who presents with fevers and rigors while receiving HD, found to have GNR bactermia Sepsis from K pneumo bacteremia 2/2 HD line infection: - Continue cefepime for now, narrow per ID consult - Infected permacath has been removed - Monitor BC ESRD: - HD per renal, however now has no HD access - Will need new access to be placed next week for HD DMII: - Continue basal/bolus insulin Hypertension: - Will hold antihypertensives while septic PPx: Ambulation Problems: Subjective 24 Hr Interval Summary Constitutional: no complaints Exam/Review of Systems Vital Signs Vitals Vital Signs Date Time Temp Pulse Resp B/P Pulse Ox O2 Delivery O2 Flow Rate FiO2 02/27/17 14:13 98.0 80 19 145/65 95 02/25/17 02:00 Room Air Intake and Output 02/26/17 02/26/17 02/27/17 15:00 23:00 07:00 Intake Total 360 ml 650 ml Balance 360 ml 650 ml Exam Constitutional: alert, oriented Respiratory: clear to auscultation Cardiovascular: regular rate and rhythm Gastrointestinal: soft, No distended Musculoskeletal: nl extremities to inspection Results Result Diagram: 02/26/17 0753 02/27/17 0445 Results 24 hrs Laboratory Tests Test 02/26/17 17:14 02/26/17 20:23 02/26/17 23:32 02/27/17 04:45 Bedside Glucose 169 150 113 Sodium Level 139 Potassium Level 5.4 H Chloride Level 93 L Carbon Dioxide Level 26 Anion Gap 25 H Blood Urea Nitrogen 87 H Creatinine 11.76 H Glucose Level 111 Calcium Level 7.8 L Phosphorus Level 10.9 H Magnesium Level 2.5 Test 02/27/17 07:58 02/27/17 11:58 Bedside Glucose 104 205 Medications Medications Current Medications Aspirin 81 mg 81 mg DAILY PO Last administered on 02/27/17t 08:00; Admin Dose 81 MG; Start 02/23/17 at 09:00 Cefepime HCl (Maxipime 1gm/50 ml (Pmx)) 50 ml @ 100 mls/hr Q24H IVPB Last administered on 02/27/17 05:17; Admin Dose 100 MLS/HR; Start 02/23/17 at 06:00 Diagnostic Test (Pha) (Accu-Chek) 1 ea 02 XX ; Start 02/23/17 at 02:00 Insulin Glargine (Lantus) 34 unit DAILY@08 SC Last administered on 02/27/17 08 :03; Admin Dose 34 UNIT; Start 02/23/17 at 08:00 Miscellaneous Information 1 ea NOTE XX ; Start 02/22/17 at 14:00 Glucose (Glutose) 15 gm Q15M PRN PO DECREASED GLUCOSE; Start 02/22/17 at 14:00 Glucose (Glutose) 22.5 gm Q15M PRN PO DECREASED GLUCOSE; Start 02/22/17 at 14: 00 Dextrose (D50w Syringe) 25 ml Q15M PRN IV DECREASED GLUCOSE; Start 02/22/17 at 14:00 Dextrose (D50w Syringe) 50 ml Q15M PRN IV DECREASED GLUCOSE; Start 02/22/17 at 14:00 Glucagon (Glucagen) 1 mg Q15M PRN IM DECREASED GLUCOSE; Start 02/22/17 at 14:00 Glucose (Glutose) 15 gm Q15M PRN BUCCAL DECREASED GLUCOSE; Start 02/22/17 at 14 :00 Lidocaine (Xylocaine 1% (Mpf)) 30 ml ONCE PRN INJ ANESTHESIA Last administered on 02/25/17 13:36; Admin Dose 30 ML; Start 02/25/17 at 12:30 Docusate Sodium (Colace) 100 mg BID PO Last administered on 02/27/17 08:00; Admin Dose 100 MG; Start 02/26/17 at 21:00 Bisacodyl (Dulcolax) 10 mg DAILY PRN PO CONSTIPATION Last administered on 21:05; Admin Dose 10 MG; Start 02/26/17 at 21:00 Acetaminophen (Tylenol Tab) 650 mg Q6H PRN PO PAIN AND OR ELEVATED TEMP Last administered on 02/27/17 02:34; Admin Dose 650 MG; Start 02/27/17 at 00:00 PRINCESS DUCKWORTH Feb 27, 2017 15:54
--- NOTE | 2017-02-27 17:35 | PN ---
DATE: 02/27/2017 SUBJECTIVE DATA: Patient is stable. No events overnight. No fevers, chills, nausea, or vomiting. OBJECTIVE DATA: VITAL SIGNS: Blood pressure is 131/63, temperature 97.6, and pulse 19. HEENT: Head is normocephalic. NECK: Supple. HEART: Regular rate. LUNGS: Diminished breath sounds at the base. ABDOMEN: Soft, nontender to palpation. No rebound or guarding. EXTREMITIES: Negative for clubbing or cyanosis. No edema. DERMATOLOGIC: Clean. No rashes. MUSCULOSKELETAL: No joint effusion. NEUROLOGIC: No change in exam. MEDICATIONS: Reviewed. LABORATORY AND DIAGNOSTIC DATA: Shows a white count 7.8, hemoglobin 12.1, hematocrit 37.4, and platelet count is 147. Sodium 139, potassium 5.4, BUN 87, creatinine 11.76, and phosphorus 7.9. ASSESSMENT AND PLAN: 1. End-stage renal disease. The patient's last hemodialysis was Monday and anticipate dialysis today once Gurdeep catheter placed. 2. Sepsis with gram-negative bacteremia and line infection. The patient's PermCath was removed. Continue current antibiotic regimen. 3. Access. The patient requires Permacath placement. We will have Gurdeep catheter placed. Plan for dialysis have Gurdeep catheter placed. 4. Anemia. Monitor hemoglobin and hematocrit levels. 5. Mineral bone disorder. Monitor calcium and phosphorus levels. 6. Volume overload. Continue ultrafiltration dialysis. 7. Diabetes. Continue Accu-Cheks and sliding scale. 8. Hypertension. Continue current blood pressure regimen. Dictated By: Jacobo Gaines DO /valerie/liberty /Document#: [id number]
[2017-02-27] MEDS ORDERED: NA POLYST SULFON 15 GM/60 ML BTL PO ONE (18:00)
[2017-02-27] MEDS ORDERED: GENTAMICIN IV PER PHARMACY XX SCH (18:00)
[2017-02-27] MEDS ORDERED: GENTAMICIN IVPB SCH (18:30)
[2017-02-27] MEDS ORDERED: SOD CHLORIDE 0.9% IVPB SCH (18:30)
[2017-02-27 20:22] VITALS: BP 158/65; RESP 16
[2017-02-28] VITALS (7 sets, daily range): BP systolic 129–187; BP diastolic 58–75; PULSE 76–78; RESP 16–20
--- NOTE | 2017-02-28 02:33 | PN ---
DATE: 02/27/2017 INFECTIOUS DISEASE PROGRESS NOTE SUBJECTIVE DATA: No acute changes. The patient is alert, feels good, looks comfortable, denies pain. No fevers. ANTIMICROBIALS: Cefepime. OBJECTIVE DATA: VITAL SIGNS: Temperature 98, pulse 80, respirations 19, blood pressure 145/65, saturation 95 percent. GENERAL: This is a morbidly obese, middle-aged man who is alert in no distress. HEENT: Head atraumatic, normocephalic. Sclerae are anicteric. Buccal mucosa pink. NECK: Obese. RESPIRATORY: Chest rise symmetrical. Breath sounds diminished at the bases. HEART: S1, S2. ABDOMEN: Soft, bowel sounds present. EXTREMITIES: Without cyanosis. SKIN: Multiple areas of follicular ingrown hair. LABORATORY AND DIAGNOSTIC DATA: No labs this morning. MICROBIOLOGY: Blood culture on 02/22/2017 grew Klebsiella pneumonia. Repeat blood cultures negative. ASSESSMENT: 1. Resolving sepsis. 2. Klebsiella pneumoniae bacteremia. Status post PermCath removed. 3. Morbid obesity. 4. End-stage renal disease, hemodialysis dependent. 5. Diabetes. 6. Hypertension. PLAN: The patient remains stable. Repeat blood cultures negative. We are going to change antibiotics to gentamicin. Await new Gurdeep catheter placement. Dictated By: Evgeny Wharton NP /valerie/cade /Document#: [id number]
[2017-02-28 07:01] LABS: CALCIUM 7.7 mg/dl (8.4-10.2); CREATININE 12.48 mg/dl (0.61-1.24); POTASSIUM 5.1 mmol/L (3.5-5.1)
[2017-02-28] MEDS: Insulin NOVOLOG SS MILD Algorithm (SS with meals and bedtime) SC SCH ×4 (07:30→20:43)
[2017-02-28] MEDS: INSULIN ASPART [NOVOLOG] 3 ML PEN SC SCH ×3 (08:16→17:33)
[2017-02-28] MEDS: ASPIRIN (EC) 81 MG TAB PO SCH (08:17)
[2017-02-28] MEDS: INSULIN GLARGINE [LANtus] 3 ML PEN SC SCH (08:17)
[2017-02-28] MEDS: DOCUSATE SODIUM 100 MG CAP PO SCH ×2 (08:17→20:44)
--- NOTE | 2017-02-28 15:55 | PN ---
Date/Time of Note Date/Time of Note DATE: 02/28/17 TIME: 15:54 Assessment/Plan VTE Prophylaxis VTE Prophylaxis Intervention: ambulation Lines/Catheters IV Catheter Type (from Nrs): Saline Lock Urinary Cath still in place: No Assessment/Plan Chief Complaint/Hosp Course 51 yo male wiht h/o ESRD on HD, DMII, morbid obesity, hypertension who presents with fevers and rigors while receiving HD, found to have GNR bactermia Sepsis from K pneumo bacteremia 2/2 HD line infection: - Continue cefepime for now, narrow per ID consult - Infected permacath has been removed - Monitor BC ESRD: - HD per renal, however now has no HD access - Will need new access to be placed next week for HD DMII: - Continue basal/bolus insulin Hypertension: - Will hold antihypertensives while septic PPx: Ambulation Problems: Subjective 24 Hr Interval Summary Constitutional: no complaints Exam/Review of Systems Vital Signs Vitals Vital Signs Date Time Temp Pulse Resp B/P Pulse Ox O2 Delivery O2 Flow Rate FiO2 02/28/17 14:00 98.2 79 18 154/63 94 02/25/17 02:00 Room Air Intake and Output 02/27/17 02/27/17 02/28/17 15:00 23:00 07:00 Intake Total 1025 ml 600 ml Balance 1025 ml 600 ml Exam Constitutional: alert Respiratory: clear to auscultation Cardiovascular: regular rate and rhythm Gastrointestinal: soft, No distended Musculoskeletal: nl extremities to inspection Results Result Diagram: 02/26/17 0753 02/28/17 0514 Results 24 hrs Laboratory Tests Test 02/27/17 17:40 02/27/17 20:50 02/28/17 05:14 02/28/17 08:09 Bedside Glucose 87 131 97 Sodium Level 139 Potassium Level 5.1 Chloride Level 94 L Carbon Dioxide Level 22 Anion Gap 28 H Blood Urea Nitrogen 100 H Creatinine 12.48 H Glucose Level 91 Calcium Level 7.7 L Test 02/28/17 11:50 Bedside Glucose 147 Medications Medications Current Medications Aspirin (Halfprin) 81 mg DAILY PO Last administered on 02/28/17t 08:17; Admin Dose 81 MG; Start 02/23/17 at 09:00 Diagnostic Test (Pha) (Accu-Chek) 1 ea 02 XX ; Start 02/23/17 at 02:00 Insulin Glargine (Lantus) 34 unit DAILY@08 SC Last administered on 02/28/17 08 :17; Admin Dose 34 UNIT; Start 02/23/17 at 08:00 Miscellaneous Information 1 ea NOTE XX ; Start 02/22/17 at 14:00 Glucose (Glutose) 15 gm Q15M PRN PO DECREASED GLUCOSE; Start 02/22/17 at 14:00 Glucose (Glutose) 22.5 gm Q15M PRN PO DECREASED GLUCOSE; Start 02/22/17 at 14: 00 Dextrose (D50w Syringe) 25 ml Q15M PRN IV DECREASED GLUCOSE; Start 02/22/17 at 14:00 Dextrose (D50w Syringe) 50 ml Q15M PRN IV DECREASED GLUCOSE; Start 02/22/17 at 14:00 Glucagon (Glucagen) 1 mg Q15M PRN IM DECREASED GLUCOSE; Start 02/22/17 at 14:00 Glucose (Glutose) 15 gm Q15M PRN BUCCAL DECREASED GLUCOSE; Start 02/22/17 at 14 :00 Lidocaine (Xylocaine 1% (Mpf)) 30 ml ONCE PRN INJ ANESTHESIA Last administered on 02/25/17 13:36; Admin Dose 30 ML; Start 02/25/17 at 12:30 Docusate Sodium (Colace) 100 mg BID PO Last administered on 02/28/17 08:17; Admin Dose 100 MG; Start 02/26/17 at 21:00 Bisacodyl (Dulcolax) 10 mg DAILY PRN PO CONSTIPATION Last administered on 21:05; Admin Dose 10 MG; Start 02/26/17 at 21:00 Acetaminophen (Tylenol Tab) 650 mg Q6H PRN PO PAIN AND OR ELEVATED TEMP Last administered on 02/27/17 02:34; Admin Dose 650 MG; Start 02/27/17 at 00:00 Gentamicin Sulfate (Gentamicin Iv Per Pharmacy) GENTAMICIN PER PHARMACY NOTE XX ; Start 02/27/17 at 18:00 PRINCESS DUCKWORTH Feb 28, 2017 15:55
--- NOTE | 2017-02-28 22:38 | PN ---
DATE: 02/28/2017 SUBJECTIVE DATA: The patient is alert, feels good, denies pain, discomfort. No fevers. VITAL SIGNS: Vital signs stable. Temperature 98.1, pulse 82, respirations 18, blood pressure 187/74, saturation 96 on room air. ANTIMICROBIALS: Gentamicin. MICROBIOLOGY: Blood culture grew Klebsiella pneumonia, repeat blood cultures negative. PHYSICAL EXAMINATION: GENERAL APPEARANCE: This is a morbidly obese, well developed, middle-aged, man, who is alert, in no distress. HEENT: Head atraumatic, normocephalic. Sclerae anicteric. Buccal mucosa pink. NECK: Obese. CHEST: Chest rise symmetrical. Breath sounds diminished at the bases. HEART: S1, S2. ABDOMEN: Obese, soft. Bowel sounds present. EXTREMITIES: No cyanosis. ASSESSMENT: 1. Status post line sepsis with Klebsiella pneumonia, bacteremia, permacath was discontinued. Repeat blood cultures negative. 2. End-stage renal disease, hemodialysis dependent. 3. Morbid obesity. 4. Diabetes and hypertension. PLAN: The patient remains stable. Continue present care. Continue on current antibiotics for 2 weeks. Pending Gurdeep catheter. Dictated By: Evgeny Wharton NP /valerie/coleman /Document#: [id number]
[2017-03-01] VITALS (10 sets, daily range): BP systolic 116–155; BP diastolic 49–72; PULSE 82–93; RESP 19–20
[2017-03-01] MEDS: ACCU-CHEK XX SCH (02:07)
[2017-03-01 07:06] LABS: CALCIUM 7.8 mg/dl (8.4-10.2); CREATININE 13.18 mg/dl (0.61-1.24)
[2017-03-01 07:30] LABS: POTASSIUM 5.5 mmol/L (3.5-5.1)
[2017-03-01] MEDS: Insulin NOVOLOG SS MILD Algorithm (SS with meals and bedtime) SC SCH ×4 (07:30→20:21)
[2017-03-01] MEDS: INSULIN ASPART [NOVOLOG] 3 ML PEN SC SCH ×3 (07:35→17:05)
[2017-03-01] MEDS: ASPIRIN (EC) 81 MG TAB PO SCH (08:03)
[2017-03-01] MEDS: DOCUSATE SODIUM 100 MG CAP PO SCH ×2 (08:03→20:20)
[2017-03-01] MEDS: INSULIN GLARGINE [LANtus] 3 ML PEN SC SCH (08:09)
--- NOTE | 2017-03-01 14:20 | PN ---
Date/Time of Note Date/Time of Note DATE: 03/01/17 TIME: 14:04 Assessment/Plan VTE Prophylaxis VTE Prophylaxis Intervention: ambulation Lines/Catheters IV Catheter Type (from Nrs): Saline Lock Urinary Cath still in place: No Assessment/Plan Chief Complaint/Hosp Course 51 yo male wiht h/o ESRD on HD, DMII, morbid obesity, hypertension who presents with fevers and rigors while receiving HD, found to have GNR bactermia Sepsis from K pneumo bacteremia 2/2 HD line infection: - Continue cefepime for now, narrow per ID consult - Infected permacath has been removed - Monitor BC ESRD: - HD per renal, however now has no HD access, vascular with Dr Barahona to obtain access today DMII: - Continue basal/bolus insulin Hypertension: - Will hold antihypertensives while septic PPx: Ambulation Problems: Subjective 24 Hr Interval Summary Constitutional: no complaints Exam/Review of Systems Vital Signs Vitals Vital Signs Date Time Temp Pulse Resp B/P Pulse Ox O2 Delivery O2 Flow Rate FiO2 03/01/17 07:56 98.1 85 20 141/71 94 Intake and Output 02/28/17 02/28/17 03/01/17 15:00 23:00 07:00 Intake Total 350 ml Balance 350 ml Exam Constitutional: alert, oriented Respiratory: clear to auscultation Cardiovascular: regular rate and rhythm Gastrointestinal: soft, No distended Musculoskeletal: nl extremities to inspection Results Result Diagram: 02/26/17 0753 03/01/17 0537 Results 24 hrs Laboratory Tests Test 02/28/17 17:27 02/28/17 20:43 03/01/17 02:05 03/01/17 05:37 Bedside Glucose 165 159 123 Sodium Level 141 Potassium Level 5.5 H Chloride Level 95 L Carbon Dioxide Level 23 Anion Gap 29 H Blood Urea Nitrogen 108 H Creatinine 13.18 H Glucose Level 99 Calcium Level 7.8 L Test 03/01/17 08:04 03/01/17 11:47 Bedside Glucose 105 90 Medications Medications Current Medications Aspirin (Halfprin) 81 mg DAILY PO Last administered on 02/28/17 08:17; Admin Dose 81 MG; Start 02/23/17 at 09:00 Diagnostic Test (Pha) (Accu-Chek) 1 ea 02 XX Last administered on 03/01/17 02: 07; Admin Dose 1 EA; Start 02/23/17 at 02:00 Insulin Glargine (Lantus) 34 unit DAILY@08 SC Last administered on 03/01/17 08 :09; Admin Dose 34 UNIT; Start 02/23/17 at 08:00 Miscellaneous Information 1 ea NOTE XX ; Start 02/22/17 at 14:00 Glucose (Glutose) 15 gm Q15M PRN PO DECREASED GLUCOSE; Start 02/22/17 at 14:00 Glucose (Glutose) 22.5 gm Q15M PRN PO DECREASED GLUCOSE; Start 02/22/17 at 14: 00 Dextrose (D50w Syringe) 25 ml Q15M PRN IV DECREASED GLUCOSE; Start 02/22/17 at 14:00 Dextrose (D50w Syringe) 50 ml Q15M PRN IV DECREASED GLUCOSE; Start 02/22/17 at 14:00 Glucagon (Glucagen) 1 mg Q15M PRN IM DECREASED GLUCOSE; Start 02/22/17 at 14:00 Glucose (Glutose) 15 gm Q15M PRN BUCCAL DECREASED GLUCOSE; Start 02/22/17 at 14 :00 Lidocaine (Xylocaine 1% (Mpf)) 30 ml ONCE PRN INJ ANESTHESIA Last administered on 02/25/17 13:36; Admin Dose 30 ML; Start 02/25/17 at 12:30 Docusate Sodium (Colace) 100 mg BID PO Last administered on 02/28/17 20:44; Admin Dose 100 MG; Start 02/26/17 at 21:00 Bisacodyl (Dulcolax) 10 mg DAILY PRN PO CONSTIPATION Last administered on 21:05; Admin Dose 10 MG; Start 02/26/17 at 21:00 Acetaminophen (Tylenol Tab) 650 mg Q6H PRN PO PAIN AND OR ELEVATED TEMP Last administered on 02/27/17 02:34; Admin Dose 650 MG; Start 02/27/17 at 00:00 Gentamicin Sulfate (Gentamicin Iv Per Pharmacy) GENTAMICIN PER PHARMACY NOTE XX ; Start 02/27/17 at 18:00 PRINCESS DUCKWORTH Mar 01, 2017 14:17
--- NOTE | 2017-03-01 14:27 | OPR ---
Date/Time of Note Date/Time of Note DATE: 03/01/17 TIME: 14:24 Operative Report Procedure Date: Feb 25, 2017 Preoperative Diagnosis PVD Postoperative Diagnosis PVD Operation Performed Aortogram with runoff Surgeon: JALEEL LUA MD social media assistant: JALEEL LUA MD Anesthesia Type: MAC, other Estimated Blood Loss: none Transfusion Required: no Specimen: none Grafts/Implants: none Complications: no Pt Condition Post Procedure: stable Disposition: PACU Indications PVD Operative\Procedure Findings Dictated Procedure Description Dictated JALEEL LUA MD Mar 01, 2017 14:27
--- NOTE | 2017-03-01 14:36 | EN ---
Date/Time of Note Date/Time of Note DATE: 03/01/17 TIME: 14:35 Event Note Surgery Surgery Event Note The OP note dating Mar [address] Miranda, was intended for a different pt and will be deleted JALEEL MIRANDA MD Mar 01, 2017 14:36
[2017-03-01] MEDS ORDERED: HEPARIN 1000 UNITS/ML 10 ML INJ ONE (15:24)
[2017-03-01] MEDS ORDERED: SOD CHLORIDE 0.9% 500 ML ONE (15:24)
--- NOTE | 2017-03-01 17:50 | CONS ---
DATE OF ADMISSION: 02/22/2017 DATE OF CONSULTATION: 03/01/2017 REASON FOR CONSULTATION: For dialysis access. HISTORY OF PRESENT ILLNESS: This is a 51-year-old gentleman who is well known to me. I saw him several weeks ago in the office. He is a super obese, diabetic, hypertensive gentleman who has end- stage renal disease, he has been on dialysis for several years. He had a failed left radiocephalic fistula that failed several months ago. I then created an upper arm brachial basilic fistula that has got a good thrill, but he still has a fair amount of edema and it has not been successfully accessed yet. He had a right IJ PermCath, which I placed several months ago, which he had been using. Apparently he gets chills after dialysis last week and came here to [facility]. I was not called, I did not know he was here, I ran into his today. But apparently when he came in, he was found to have a line infection and someone removed his right IJ PermCath last Monday, so he has not had dialysis since Monday last week. It has been 5 days. IVR had been consulted to put in a new Gurdeep catheter, but they thought he was too obese and they did not want to put it in. So, I ran into the patient's today and I told them to have his doctors call me and so Dr. Major called me to put in his Gurdeep catheter. PAST MEDICAL HISTORY: Again, significant for morbid obesity, diabetes, hypertension, end-stage renal disease. He has had some abdominal issues, as well, has had bowel obstruction surgery in the past. He has had the left radiocephalic AV fistula that worked for several years and then failed and could not be reopened and has a left upper arm brachial basilic fistula which I created about 6 weeks ago. The incisions are healing still and it has not been accessed yet. MEDICATION: On the chart. He is getting IV antibiotics per infectious disease. SOCIAL HISTORY: He is a nonsmoker. He lives with his . She is very involved with his care. FAMILY HISTORY: Noncontributory. REVIEW OF SYSTEMS: He says he feels fine. He denies any chest pain, shortness of breath, nausea, vomiting, diarrhea. No fever, no chills. No recent weight gain or weight loss. Again, he is super obese, probably close to 500 pounds. PHYSICAL EXAMINATION: VITAL SIGNS: He is currently afebrile and vital signs stable. VASCULAR: He has 2+ carotid pulses bilaterally. The right IJ PermCath site, I can see where the catheter was removed. The left upper arm AV fistula actually has a good thrill. He says his arm is so large, it would be hard to access at this point until some of the edema improves. There is a good thrill and I can feel the vein but I know exactly where this is. ABDOMEN: Soft, nontender. He is, again, morbidly obese. EXTREMITIES: He has 2+ DP pulses in both feet. No significant lower extremity edema. LABORATORY: His potassium today is 5.4. IMPRESSION: End-stage renal disease currently with no dialysis access. I am going to place an IJ catheter. He is refusing a femoral PermCath. I think it would be quite difficult to place a femoral catheter in any case given his size. We need a PermCath replaced, I will exchange the Gurdeep catheter over the wire once it is okay with ID and the infection is cleared. Dictated By: Phill Martínez MD /valerie/hussein /Document#: [id number] CC: Jacobo Gaines DO; Barbara Major MD; Linda Heart MD; Dr. Madeline Valverde ;*EndCC*
--- NOTE | 2017-03-01 18:41 | RADRPT ---
PROCEDURE: XR Chest. CLINICAL INDICATION: The patient is status post placement of left central venous Perma-Cath. TECHNIQUE: Single frontal view of the chest. COMPARISON: 02/22/2017. FINDINGS: New left central venous dialysis catheter in place with tip in the superior vena cava. Previously se en right central venous dialysis catheter is removed. Portable technique and patient body habitus accentuate the cardiac silhouette and pulmonary vascular markings. The heart size is likely upper limits of normal. There are is improved lung inflation ov er the interval. The lungs are clear. No signs of pleural fluid or pneumothorax are seen. The osseou s structures and soft tissues are unremarkable. IMPRESSION: New left central venous dialysis catheter in place with tip in the superior vena cava. RPTAT: [facility] Physician Dilcia Date Time Electronically viewed and signed by Physician Dilcia on 03/01/2017 18:41 RS/
--- NOTE | 2017-03-01 20:00 | OPR ---
DATE OF OPERATION: 03/01/2017 PREOPERATIVE DIAGNOSIS: End-stage renal disease. POSTOPERATIVE DIAGNOSIS: End-stage renal disease. OPERATION PERFORMED: Insertion of left internal jugular vein temporary hemodialysis catheter using ultrasound guidance. SURGEON: Phill Martínez MD. ANESTHESIA: Local anesthesia. ESTIMATED BLOOD LOSS: Minimal. COMPLICATIONS: There were no intraprocedural complications. INDICATIONS: This is a 51-year-old, morbidly obese gentleman who recently had his right IJ PermCath removed for infection. He has a left upper arm AV fistula, but it is not functional currently. He needs to dialyze; so, I brought him down to place a temporary catheter under ultrasound guidance. 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 Left neck and chest were prepped and draped in usual sterile fashion. I used ultrasound to identify the left internal jugular vein. It has a nice patent vein, easily compressible. No filling defects. Infiltrated over the vein using 10 mL of 1 percent xylocaine. I used an 18-gauge single wall puncture needle to enter the vein under ultrasound guidance. An 0.35 wire was inserted through the needle into the vein. The tract was dilated over the wire. I then placed a 20-cm long Gurdeep catheter and Trialysis catheter over the wire. There was good back flow and the ports all flushed easily. I left 1.5 mL of 1000 unit per mL heparin in each port. Anchored it to the skin using 3-0 nylon sutures. Sterile dressing was applied. The patient was then transferred back to his room in stable condition. The chest x-ray is pending. If the chest x-ray is okay, he can go ahead and access the catheter. He will need and exchange to a PermCath just prior to discharge. Dictated By: Phill Martínez MD /valerie/jackie /Document#: [id number] CC: Linda Heart MD; Barbara Major MD
[2017-03-01] MEDS: GENTAMICIN 100 MG/50 ML NS IVPB SCH (20:57)
[2017-03-01] MEDS: ACETAMINOPHEN 325 MG TAB PO PRN (23:49)
[2017-03-02] VITALS (11 sets, daily range): BP systolic 110–145; BP diastolic 56–90; PULSE 70–85; RESP 16–20
[2017-03-02] MEDS: ACCU-CHEK XX SCH (01:46)
--- NOTE | 2017-03-02 04:22 | PN ---
DATE: 03/01/2017 SUBJECTIVE DATA: No events overnight. No fevers. The patient is lying comfortably in bed. ANTIMICROBIALS: He is on gentamicin. MICROBIOLOGY: Blood cultures repeated on February 24, negative. PHYSICAL EXAMINATION: GENERAL: This is a morbidly obese, well developed, middle-aged man who is in no distress. HEENT: Head is atraumatic and normocephalic. Sclerae are anicteric. Buccal mucosa is dry. NECK: Obese. LUNGS: Chest rise is symmetrical. Breath sounds are diminished at the bases. HEART: S1, S2. ABDOMEN: Soft. Bowel sounds are present. EXTREMITIES: Without cyanosis. ASSESSMENT: 1. Status post bacteremia with fevers and chills during hemodialysis, PermCath removed. 2. End-stage renal disease. 3. Morbid obesity. 4. Diabetes. 5. Hypertension. PLAN: The patient remains stable. Continue present care. Pending Gurdeep catheter placement. We will keep her on gentamicin for 10 more days. Dictated By: Evgeny Wharton NP /valerie/jackie /Document#: [id number]
[2017-03-02 07:24] LABS: CALCIUM 7.6 mg/dl (8.4-10.2); CREATININE 11.52 mg/dl (0.61-1.24); POTASSIUM 4.9 mmol/L (3.5-5.1)
[2017-03-02] MEDS: Insulin NOVOLOG SS MILD Algorithm (SS with meals and bedtime) SC SCH ×4 (08:58→21:02)
[2017-03-02] MEDS: INSULIN ASPART [NOVOLOG] 3 ML PEN SC SCH ×3 (08:59→17:41)
[2017-03-02] MEDS: DOCUSATE SODIUM 100 MG CAP PO SCH ×2 (09:01→21:00)
[2017-03-02] MEDS: INSULIN GLARGINE [LANtus] 3 ML PEN SC SCH (09:01)
[2017-03-02] MEDS: ASPIRIN (EC) 81 MG TAB PO SCH (09:02)
--- NOTE | 2017-03-02 15:00 | CONS ---
Date/Time of Note Date/Time of Note DATE: 03/02/17 TIME: 14:59 Assessment/Plan Assessment/Plan Chief Complaint/Hosp Course SUBJECTIVE DATA: The patient is alert, feels good, denies pain, discomfort. No fevers. ANTIMICROBIALS: Gentamicin. MICROBIOLOGY: Blood culture grew Klebsiella pneumonia, repeat blood cultures negative. PHYSICAL EXAMINATION: GENERAL APPEARANCE: This is a morbidly obese, well developed, middle-aged, man, who is alert, in no distress. HEENT: Head atraumatic, normocephalic. Sclerae anicteric. Buccal mucosa pink. NECK: Obese. CHEST: Chest rise symmetrical. Breath sounds diminished at the bases. HEART: S1, S2. ABDOMEN: Obese, soft. Bowel sounds present. EXTREMITIES: No cyanosis. ASSESSMENT: 1. Status post line sepsis with Klebsiella pneumonia, bacteremia, permacath was discontinued. Repeat blood cultures negative. 2. End-stage renal disease, hemodialysis dependent. 3. Morbid obesity. 4. Diabetes and hypertension. PLAN: The patient remains stable. Continue present care. Continue on current antibiotics till Mar 12. S/p Gurdeep catheter. Problems: Consultation Date/Type/Reason Admit Date/Time Feb 22, 2017 at 05:53 Initial Consult Date 02/23/17 Type of Consultation: ID Exam/Review of Systems Vital Signs Vitals Vital Signs Date Time Temp Pulse Resp B/P Pulse Ox O2 Delivery O2 Flow Rate FiO2 03/02/17 14:15 70 03/02/17 14:15 98.0 16 120/90 94 Intake and Output 03/01/17 03/01/17 03/02/17 15:00 23:00 07:00 Intake Total 670 ml 320 ml Output Total 5000 ml Balance -4330 ml 320 ml Results Result Diagram: 02/26/17 0753 03/02/17 0542 Results 24 hrs Laboratory Tests Test 03/01/17 16:40 03/01/17 20:19 03/02/17 01:41 03/02/17 05:42 Bedside Glucose 87 209 107 Sodium Level 138 Potassium Level 4.9 Chloride Level 93 L Carbon Dioxide Level 24 Anion Gap 26 H Blood Urea Nitrogen 87 H Creatinine 11.52 H Glucose Level 84 Calcium Level 7.6 L Test 03/02/17 08:44 03/02/17 12:10 Bedside Glucose 164 179 Medications Medications Current Medications Aspirin (Halfprin) 81 mg DAILY PO Last administered on 03/02/17 09:02; Admin Dose 81 MG; Start 02/23/17 at 09:00 Diagnostic Test (Pha) (Accu-Chek) 1 ea 02 XX Last administered on 03/02/17 01: 46; Admin Dose 1 EA; Start 02/23/17 at 02:00 Insulin Glargine (Lantus) 34 unit DAILY@08 SC Last administered on 03/02/17 09 :01; Admin Dose 34 UNIT; Start 02/23/17 at 08:00 Miscellaneous Information 1 ea NOTE XX ; Start 02/22/17 at 14:00 Glucose (Glutose) 15 gm Q15M PRN PO DECREASED GLUCOSE; Start 02/22/17 at 14:00 Glucose (Glutose) 22.5 gm Q15M PRN PO DECREASED GLUCOSE; Start 02/22/17 at 14: 00 Dextrose (D50w Syringe) 25 ml Q15M PRN IV DECREASED GLUCOSE; Start 02/22/17 at 14:00 Dextrose (D50w Syringe) 50 ml Q15M PRN IV DECREASED GLUCOSE; Start 02/22/17 at 14:00 Glucagon (Glucagen) 1 mg Q15M PRN IM DECREASED GLUCOSE; Start 02/22/17 at 14:00 Glucose (Glutose) 15 gm Q15M PRN BUCCAL DECREASED GLUCOSE; Start 02/22/17 at 14 :00 Lidocaine (Xylocaine 1% (Mpf)) 30 ml ONCE PRN INJ ANESTHESIA Last administered on 02/25/17 13:36; Admin Dose 30 ML; Start 02/25/17 at 12:30 Docusate Sodium (Colace) 100 mg BID PO Last administered on 03/02/17 09:01; Admin Dose 100 MG; Start 02/26/17 at 21:00 Bisacodyl (Dulcolax) 10 mg DAILY PRN PO CONSTIPATION Last administered on 21:05; Admin Dose 10 MG; Start 02/26/17 at 21:00 Acetaminophen (Tylenol Tab) 650 mg Q6H PRN PO PAIN AND OR ELEVATED TEMP Last administered on 03/01/17 23:49; Admin Dose 650 MG; Start 02/27/17 at 00:00 Gentamicin Sulfate (Gentamicin Iv Per Pharmacy) GENTAMICIN PER PHARMACY NOTE XX ; Start 8/28/17 at 18:00 ISAI CABRERA NP Mar 02, 2017 15:00
--- NOTE | 2017-03-02 17:51 | PN ---
Date/Time of Note Date/Time of Note DATE: 03/02/17 TIME: 17:49 Assessment/Plan VTE Prophylaxis VTE Prophylaxis Intervention: ambulation Lines/Catheters IV Catheter Type (from Nrs): Saline Lock Urinary Cath still in place: No Assessment/Plan Chief Complaint/Hosp Course 51 yo male wiht h/o ESRD on HD, DMII, morbid obesity, hypertension who presents with fevers and rigors while receiving HD, found to have GNR bactermia Sepsis from K pneumo bacteremia 2/2 HD line infection: - Continue cefepime for now, narrow per ID consult - Infected permacath has been removed, will need new line when sepsis resolved - Monitor BC ESRD: - HD per renal, patient had Gurdeep catheter placed yesterday with Dr Barahona, DMII: - Continue basal/bolus insulin Hypertension: - Will hold antihypertensives while septic PPx: Ambulation Problems: Subjective 24 Hr Interval Summary Constitutional: no complaints Exam/Review of Systems Vital Signs Vitals Vital Signs Date Time Temp Pulse Resp B/P Pulse Ox O2 Delivery O2 Flow Rate FiO2 03/02/17 14:45 85 18 03/02/17 14:15 98.0 120/90 94 Intake and Output 03/01/17 03/01/17 03/02/17 15:00 23:00 07:00 Intake Total 670 ml 320 ml Output Total 5000 ml Balance -4330 ml 320 ml Exam Constitutional: alert, oriented Respiratory: clear to auscultation Cardiovascular: regular rate and rhythm Gastrointestinal: soft, No distended Musculoskeletal: nl extremities to inspection Results Result Diagram: 02/26/17 0753 03/02/17 0542 Results 24 hrs Laboratory Tests Test 03/01/17 20:19 03/02/17 01:41 03/02/17 05:42 03/02/17 08:44 Bedside Glucose 209 107 164 Sodium Level 138 Potassium Level 4.9 Chloride Level 93 L Carbon Dioxide Level 24 Anion Gap 26 H Blood Urea Nitrogen 87 H Creatinine 11.52 H Glucose Level 84 Calcium Level 7.6 L Test 03/02/17 12:10 Bedside Glucose 179 Medications Medications Current Medications Aspirin (Halfprin) 81 mg DAILY PO Last administered on 03/02/17 09:02; Admin Dose 81 MG; Start 02/23/17 at 09:00 Diagnostic Test (Pha) (Accu-Chek) 1 ea 02 XX Last administered on 03/02/17 01: 46; Admin Dose 1 EA; Start 02/23/17 at 02:00 Insulin Glargine (Lantus) 34 unit DAILY@08 SC Last administered on 03/02/17 09 :01; Admin Dose 34 UNIT; Start 02/23/17 at 08:00 Miscellaneous Information 1 ea NOTE XX ; Start 02/22/17 at 14:00 Glucose (Glutose) 15 gm Q15M PRN PO DECREASED GLUCOSE; Start 02/22/17 at 14:00 Glucose (Glutose) 22.5 gm Q15M PRN PO DECREASED GLUCOSE; Start 02/22/17 at 14: 00 Dextrose (D50w Syringe) 25 ml Q15M PRN IV DECREASED GLUCOSE; Start 02/22/17 at 14:00 Dextrose (D50w Syringe) 50 ml Q15M PRN IV DECREASED GLUCOSE; Start 02/22/17 at 14:00 Glucagon (Glucagen) 1 mg Q15M PRN IM DECREASED GLUCOSE; Start 02/22/17 at 14:00 Glucose (Glutose) 15 gm Q15M PRN BUCCAL DECREASED GLUCOSE; Start 02/22/17 at 14 :00 Lidocaine (Xylocaine 1% (Mpf)) 30 ml ONCE PRN INJ ANESTHESIA Last administered on 02/25/17 13:36; Admin Dose 30 ML; Start 02/25/17 at 12:30 Docusate Sodium (Colace) 100 mg BID PO Last administered on 03/02/17 09:01; Admin Dose 100 MG; Start 02/26/17 at 21:00 Bisacodyl (Dulcolax) 10 mg DAILY PRN PO CONSTIPATION Last administered on 21:05; Admin Dose 10 MG; Start 02/26/17 at 21:00 Acetaminophen (Tylenol Tab) 650 mg Q6H PRN PO PAIN AND OR ELEVATED TEMP Last administered on 03/01/17 23:49; Admin Dose 650 MG; Start 02/27/17 at 00:00 Gentamicin Sulfate (Gentamicin Iv Per Pharmacy) GENTAMICIN PER PHARMACY NOTE XX ; Start 02/27/17 at 18:00 PRINCESS DUCKWORTH Mar 02, 2017 17:51
[2017-03-02] MEDS: GENTAMICIN 100 MG/50 ML NS IVPB SCH (21:00)
[2017-03-03] MEDS: ACETAMINOPHEN 325 MG TAB PO PRN ×3 (01:00→20:45)
[2017-03-03 02:00] VITALS: BP 148/63; RESP 20
[2017-03-03] MEDS: ACCU-CHEK XX SCH (02:27)
[2017-03-03 07:25] VITALS: BP 151/67; RESP 18
[2017-03-03 07:45] LABS: CALCIUM 8.3 mg/dl (8.4-10.2); CREATININE 10.64 mg/dl (0.61-1.24); POTASSIUM 4.8 mmol/L (3.5-5.1)
[2017-03-03] MEDS: INSULIN ASPART [NOVOLOG] 3 ML PEN SC SCH ×3 (08:27→17:51)
[2017-03-03] MEDS: INSULIN GLARGINE [LANtus] 3 ML PEN SC SCH (08:28)
[2017-03-03] MEDS: ASPIRIN (EC) 81 MG TAB PO SCH (08:29)
[2017-03-03] MEDS: DOCUSATE SODIUM 100 MG CAP PO SCH ×2 (08:29→20:45)
[2017-03-03] MEDS: Insulin NOVOLOG SS MILD Algorithm (SS with meals and bedtime) SC SCH ×4 (08:31→20:50)
[2017-03-03] MEDS ORDERED: HEPARIN 1000 UNITS/ML 10 ML INJ ONE (10:55)
[2017-03-03] MEDS ORDERED: LIDOCAINE 1% (MDV) 20 ML INJ ONE (10:55)
[2017-03-03] MEDS ORDERED: CEFAZOLIN 2 GM/50 ML (PMX) 50 ML IVPB ONE (11:16)
--- NOTE | 2017-03-03 11:50 | SIPON ---
Date/Time of Note Date/Time of Note DATE: 03/03/17 TIME: 11:48 Operative Report Preoperative Diagnosis ESRD Postoperative Diagnosis same Operation/Procedure Performed L IJ permacath placement Surgeon: GABINO COREY MD Anesthesia Type: MAC, other Estimated Blood Loss: none Transfusion Required: no Specimen: none Grafts/Implants: none Grafts/Implants 29 cm Permacath Complications: no GABINO COREY MD Mar 03, 2017 11:50
--- NOTE | 2017-03-03 12:50 | CONS ---
Date/Time of Note Date/Time of Note DATE: 03/03/17 TIME: 12:49 Assessment/Plan Assessment/Plan Chief Complaint/Hosp Course SUBJECTIVE DATA: The patient is alert, no fevers/chills ANTIMICROBIALS: Gentamicin. MICROBIOLOGY: Blood culture grew Klebsiella pneumonia, repeat blood cultures negative. PHYSICAL EXAMINATION: GENERAL APPEARANCE: This is a morbidly obese, well developed, middle-aged, man, who is alert, in no distress. HEENT: Head atraumatic, normocephalic. Sclerae anicteric. Buccal mucosa pink. NECK: Obese. CHEST: Chest rise symmetrical. Breath sounds diminished at the bases. HEART: S1, S2. ABDOMEN: Obese, soft. Bowel sounds present. EXTREMITIES: No cyanosis. ASSESSMENT: 1. Status post line sepsis with Klebsiella pneumonia, bacteremia, permacath was discontinued. Repeat blood cultures negative. 2. End-stage renal disease, hemodialysis dependent. 3. Morbid obesity. 4. Diabetes and hypertension. PLAN: The patient remains stable. Continue present care. Continue on current antibiotics till Mar 12. Pending [facility] staff Problems: Consultation Date/Type/Reason Admit Date/Time Feb 22, 2017 at 05:53 Initial Consult Date 02/23/17 Type of Consultation: ID Exam/Review of Systems Vital Signs Vitals Vital Signs Date Time Temp Pulse Resp B/P Pulse Ox O2 Delivery O2 Flow Rate FiO2 03/03/17 07:25 98.3 84 18 151/67 93 Intake and Output 03/02/17 03/02/17 03/03/17 15:00 23:00 07:00 Intake Total 300 ml 750 ml 500 ml Output Total 3300 ml Balance -3000 ml 750 ml 500 ml Results Result Diagram: 03/03/17 0616 Results 24 hrs Laboratory Tests Test 03/02/17 17:35 03/02/17 20:59 03/03/17 02:25 03/03/17 06:16 Bedside Glucose 111 193 95 Sodium Level 136 Potassium Level 4.8 Chloride Level 97 Carbon Dioxide Level 23 Anion Gap 21 H Blood Urea Nitrogen 73 H Creatinine 10.64 H Glucose Level 100 Calcium Level 8.3 L Test 03/03/17 08:16 03/03/17 12:30 Bedside Glucose 127 170 Medications Medications Current Medications Aspirin (Halfprin) 81 mg DAILY PO Last administered on 03/03/17t 08:29; Admin Dose 81 MG; Start 02/23/17 at 09:00 Diagnostic Test (Pha) (Accu-Chek) 1 ea 02 XX Last administered on 03/03/17 02: 27; Admin Dose 1 EA; Start 02/23/17 at 02:00 Insulin Glargine (Lantus) 34 unit DAILY@08 SC Last administered on 03/03/17 08: 28; Admin Dose 34 UNIT; Start 02/23/17 at 08:00 Miscellaneous Information 1 ea NOTE XX ; Start 02/22/17 at 14:00 Glucose (Glutose) 15 gm Q15M PRN PO DECREASED GLUCOSE; Start 02/22/17 at 14:00 Glucose (Glutose) 22.5 gm Q15M PRN PO DECREASED GLUCOSE; Start 02/22/17 at 14: 00 Dextrose (D50w Syringe) 25 ml Q15M PRN IV DECREASED GLUCOSE; Start 02/22/17 at 14:00 Dextrose (D50w Syringe) 50 ml Q15M PRN IV DECREASED GLUCOSE; Start 02/22/17 at 14:00 Glucagon (Glucagen) 1 mg Q15M PRN IM DECREASED GLUCOSE; Start 02/22/17 at 14:00 Glucose (Glutose) 15 gm Q15M PRN BUCCAL DECREASED GLUCOSE; Start 02/22/17 at 14 :00 Lidocaine (Xylocaine 1% (Mpf)) 30 ml ONCE PRN INJ ANESTHESIA Last administered on 02/25/17 13:36; Admin Dose 30 ML; Start 02/25/17 at 12:30 Docusate Sodium (Colace) 100 mg BID PO Last administered on 03/03/17 08:29; Admin Dose 100 MG; Start 02/26/17 at 21:00 Bisacodyl (Dulcolax) 10 mg DAILY PRN PO CONSTIPATION Last administered on 21:05; Admin Dose 10 MG; Start 02/26/17 at 21:00 Acetaminophen (Tylenol Tab) 650 mg Q6H PRN PO PAIN AND OR ELEVATED TEMP Last administered on 03/03/17 01:00; Admin Dose 650 MG; Start 02/27/17 at 00:00 Gentamicin Sulfate (Gentamicin Iv Per Pharmacy) GENTAMICIN PER PHARMACY NOTE XX ; Start 02/27/17 at 18:00 ISAI CABRERA NP Mar 03, 2017 12:50
--- NOTE | 2017-03-03 13:14 | OPR ---
DATE OF OPERATION: 03/03/2017 SURGEON: Phill Martínez MD PREOPERATIVE DIAGNOSIS: End-stage renal disease. POSTOPERATIVE DIAGNOSIS: End-stage renal disease. OPERATION PERFORMED: Placement of left internal jugular vein tunneled hemodialysis catheter. ANESTHESIA: Local anesthesia. ESTIMATED BLOOD LOSS: Minimal. COMPLICATIONS: There were no intra-procedural complications. INDICATIONS: This is a 51-year-old, morbidly obese, diabetic, hypertensive gentleman with end-stage renal disease, who has been on dialysis for several years. He has a left upper arm AV fistula, created several months ago and it has not matured yet. He developed infection right IJ PermCath which was removed last week. I placed a Gurdeep catheter in the left IJ several days ago. I brought him in today through the exchange for a PermCath. OPERATIVE PROCEDURE: Patient was brought to catheterization lab, placed on the table supine position. Left neck and chest were prepped and draped in the usual sterile fashion. I advanced a wire through the distal port of the PermCath, it was an Amplatz wire, I advanced it down into the right atrium. I then removed the PermCath and then I advanced a Kumpe the catheter over the wire and directed the wire down into the inferior vena cava. I then anesthetized the area around the entry site and the anesthetized tract down onto the left anterior chest wall below the clavicle using another 10 mL 1 percent Xylocaine. I made a small incision below the clavicle and tunneled a 28 cm tunneled hemodialysis catheter between the 2 incisions, leaving the cuff in the midportion of the tract. I then passed serial dilators over the wire and then a large peel-away sheath was advanced over the wire and into the right atrium. I then placed the end of the catheter through the peel-away sheath, and then peeled the sheath away leaving the tips in the right atrium. The catheter was good the catheters in good position, there were no kinks anywhere. I flushed it and there was good back flow and it flushed easily. I anchored it to the skin using a #3-0 nylon suture and 2 mL of 1000 unit/cc heparin was left in each port. Sterile dressing was applied. The patient was transferred to the Recovery room in stable condition. He tolerated procedure well without any complications. Dictated By: Phill Martínez MD /valerie/margot /Document#: [id number] CC: Linda Heart MD; Barbara Major MD
[2017-03-03 14:11] VITALS: BP 130/84; RESP 18
--- NOTE | 2017-03-03 15:20 | PDOCDIS ---
Discharge Instructions CONDITION Patient Condition: Good HOME CARE INSTRUCTIONS: Special Diet: Renal, diabetic ACTIVITY: Activity Restrictions: No Restrictions FOLLOW UP/APPOINTMENTS Follow-up Plan FOLLOW UP WITH YOUR PRIMARY CARE PHYSICIAN IN 1-2 WEEKS, follow-up with HD center as scheduled PRINCESS DUCKWORTH Mar 03, 2017 15:20
--- NOTE | 2017-03-03 15:25 | DS ---
Date/Time of Note Date/Time of Note DATE: 03/03/17 TIME: 15:20 Discharge Summary Admission/Discharge Info Admit Date/Time Feb 22, 2017 at 05:53 Discharge Date/Time March 03, 2017 Discharge Diagnosis 1. Sepsis from K pneumo bacteremia 2/2 HD line infection status post post line removal and antibiotics with new permacath placed -Continue gentamicin with dialysis until March 12 2. ESRD: -Continue hemodialysis per renal 3. DMII: -Continue home regimen 4. Hypertension: -Continue home regimen Hospital Course Patient is a 51 yo male with h/o morbid obesity, DMII, ESRD on HD, HTN who presents with fevers and rigors as well as elevated temperature. Patient had a blood culture that was positive for Klebsiella pneumonia patient was felt to have a line infection. Patient was seen by ID and renal and permacath was removed and was continued on antibiotics. Patient has had a fistula placed but has not matured yet. Patient received temporary dialysis Via Gurdeep ultimately a new permacath was placed once was felt that his sepsis had resolved and was cleared by ID for new permacath placement. Patient did have subsequent blood cultures that remained negative. Recommendation by ID was to continue gentamicin until March 12. On day of discharge patient's vitals, labs and physical exam are stable and he had no further acute complaints questions are answered. Home Meds Reported Medications Carvedilol* (Carvedilol*) 6.25 Mg Tablet, 6.25 MG PO BID, #60 TAB 02/22/17 Simvastatin* (Zocor*) 20 Mg Tablet, 20 MG PO QHS, #30 TAB 02/22/17 Nifedipine* (Procardia*) 20 Mg Cap, 20 MG PO Q6, CAP 02/22/17 Aspirin* (Aspirin* EC) 81 Mg Tablet.dr, 81 MG PO DAILY, TAB 02/22/17 Insulin Lispro (Humalog Kwikpen U-100) 100 Unit/1 Ml Insuln.pen, 10 UNIT SQ AC DINNER 02/22/17 Insulin Glargine* (Lantus*) 100 Unit/Ml Soln, 40 UNIT SC BEFORE BREAKFAST, #1 VIAL 02/22/17 Follow-up Plan FOLLOW UP WITH YOUR PRIMARY CARE PHYSICIAN IN 1-2 WEEKS, follow-up with hemodialysis center Primary Care Provider Madeline Valverde Time spent on discharge: > 30 minutes PRINCESS DUCKWORTH Mar 03, 2017 15:25
[2017-03-03 20:00] VITALS: BP 139/58; RESP 20
[2017-03-03] MEDS: morphine 4 MG/ML VIAL IV PRN (21:42)
[2017-03-04] VITALS (10 sets, daily range): BP systolic 110–151; BP diastolic 48–82; PULSE 81–85; RESP 19–20
[2017-03-04] MEDS: ACCU-CHEK XX SCH (02:43)
[2017-03-04] MEDS: morphine 4 MG/ML VIAL IV PRN (02:46)
[2017-03-04] MEDS: Insulin NOVOLOG SS MILD Algorithm (SS with meals and bedtime) SC SCH ×2 (07:30→12:12)
[2017-03-04] MEDS: DOCUSATE SODIUM 100 MG CAP PO SCH (08:23)
[2017-03-04] MEDS: ASPIRIN (EC) 81 MG TAB PO SCH (08:23)
[2017-03-04] MEDS: INSULIN ASPART [NOVOLOG] 3 ML PEN SC SCH ×2 (08:29→12:11)
[2017-03-04] MEDS: INSULIN GLARGINE [LANtus] 3 ML PEN SC SCH (08:30)
[2017-03-04 12:05] LABS: HAAIG REFLEX REFLEX FILED
--- NOTE | 2017-03-04 13:10 | DS ---
Date/Time of Note Date/Time of Note DATE: 03/04/17 TIME: 13:07 Discharge Summary Admission/Discharge Info Admit Date/Time Feb 22, 2017 at 05:53 Discharge Date/Time March 04, 2017 Discharge Diagnosis DC held as patient needed to receive dialysis and there was an issue with arrangement of outpatient HD but director pharmaceutical has made appropriate arrangements for patient to continue outpatient dialysis 1. Sepsis from K pneumo bacteremia 2/ HD line infection status post post line removal and antibiotics with new permacath placed -Continue gentamicin with dialysis until March 12 2. ESRD: -Continue hemodialysis per renal 3. DMII: -Continue home regimen 4. Hypertension: -Continue home regimen Patient Condition: Good Hospital Course Patient is a 51 yo male with h/o morbid obesity, DMII, ESRD on HD, HTN who presents with fevers and rigors as well as elevated temperature. Patient had a blood culture that was positive for Klebsiella pneumonia patient was felt to have a line infection. Patient was seen by ID and renal and permacath was removed and was continued on antibiotics. Patient has had a fistula placed but has not matured yet. Patient received temporary dialysis Via Gurdeep ultimately a new permacath was placed once was felt that his sepsis had resolved and was cleared by ID for new permacath placement. Patient did have subsequent blood cultures that remained negative. Recommendation by ID was to continue gentamicin until March 12. On day of discharge patient's vitals, labs and physical exam are stable and he had no further acute complaints questions are answered. Home Meds Reported Medications Carvedilol* (Carvedilol*) 6.25 Mg Tablet, 6.25 MG PO BID, #60 TAB 02/22/17 Simvastatin* (Zocor*) 20 Mg Tablet, 20 MG PO QHS, #30 TAB 02/22/17 Nifedipine* (Procardia*) 20 Mg Cap, 20 MG PO Q6, CAP 02/22/17 Aspirin* (Aspirin* EC) 81 Mg Tablet.dr, 81 MG PO DAILY, TAB 02/22/17 Insulin Lispro (Humalog Kwikpen U-100) 100 Unit/1 Ml Insuln.pen, 10 UNIT SQ AC DINNER 02/22/17 Insulin Glargine* (Lantus*) 100 Unit/Ml Soln, 40 UNIT SC BEFORE BREAKFAST, #1 VIAL 02/22/17 Follow-up Plan Follow-up with PCP in 1-2 weeks and with HD center as scheduled Primary Care Provider Madeline Valverde Time spent on discharge: > 30 minutes PRINCESS DUCKWORTH Mar 04, 2017 13:09
[2017-03-04 13:47] LABS: HEPATITIS B CORE ANTIBODY NEGATIVE (NEGATIVE)
== END 2017-03-04 17:10 | disposition home or self-care (01) | DRG 314 ==
LOC: E/R 04:35 → MS3 05:53 → PP2 17:36
PROVIDERS: ADMIT Family Medicine; ATTEND Family Medicine
PROC: 5A1D60Z (ICD-10-PCS; 2017-02-22)
PROC: 02PYX3Z Removal of Infusion Device from Great Vessel, External Approach (ICD-10-PCS; principal; 2017-02-25)
PROC: 05HM33Z Insertion of Infusion Device into Right Internal Jugular Vein, Percutaneous Approach (ICD-10-PCS; 2017-03-01)
PROC: B543ZZA Ultrasonography of Right Jugular Veins, Guidance (ICD-10-PCS; 2017-03-01)
PROC: 02H633Z Insertion of Infusion Device into Right Atrium, Percutaneous Approach (ICD-10-PCS; 2017-03-03)
PROC: 02PYX3Z Removal of Infusion Device from Great Vessel, External Approach (ICD-10-PCS; 2017-03-03)
PROC: 0JH63XZ Insertion of Tunneled Vascular Access Device into Chest Subcutaneous Tissue and Fascia, Percutaneous Approach (ICD-10-PCS; 2017-03-03)
DX: T80.211A Bloodstream infection due to central venous catheter, initial encounter (principal); A41.89 Other specified sepsis; N18.6 End stage renal disease; I12.0 Hypertensive chronic kidney disease with stage 5 chronic kidney disease or end stage renal disease; Z68.44 Body mass index [BMI] 60.0-69.9, adult; E11.22 Type 2 diabetes mellitus with diabetic chronic kidney disease; D64.9 Anemia, unspecified; E66.01 Morbid (severe) obesity due to excess calories; B96.1 Klebsiella pneumoniae [K. pneumoniae] as the cause of diseases classified elsewhere; E87.70 Fluid overload, unspecified; Z99.2 Dependence on renal dialysis
CPT/HCPCS: 36415; 71010; 80048; 80053; 80202; 82962; 83605; 83735; 84100; 84484; 85025; 85610; 85730; 86704; 86709; 86803; 87040; 87070; 87081; 87340; 90935; 93005; 96372; 96374; 96375; C1752; C1769; C1887; J0690; J0692; J1580; J1644; J1815; J2270; J2405; J3370; J7040